=== PATIENT | male | born 1935 | race Caucasian/White ===

== ENCOUNTER 2018-03-05 14:04 | Emergency (ER) | payer MEDICARE ==
[~2018-03-05] VITALS: Ht 170.2 cm; Wt 73.2 kg
[2018-03-05 14:33] VITALS: Ht 170.2 cm; Wt 73.2 kg
[2018-03-05] MEDS ORDERED: FLOMAX0.4 MG PO (14:35)
[2018-03-05] MEDS ORDERED: VITAMIN D31000 UNIT PO (14:36)
[2018-03-05] MEDS ORDERED: CALCIUM 500 +1 EAC3 PO (14:36)
[2018-03-05] MEDS ORDERED: VITAMIN B-121000 MCG PO (14:37)
[2018-03-05 15:33] LABS: BASOPHILS 0.1 % (0-2); EOSINOPHILS 0 % (0-7); HEMATOCRIT 42.3 % (42.0-54.0); HEMOGLOBIN 14.1 g/dL (13.5-17.5); IMMATURE GRANULOCYTES 0.3 % (0-5); LYMPHOCYTES 8.7 % (15-50); MCH 31.3 pg (26.0-34.0); MCHC 33.3 g/dL (31.0-37.0); MEAN PLATELET VOLUME 10.4 fL (7.4-10.4); MONOCYTES 15.5 % (2-11); NEUTROPHILS 75.4 % (40-80); PLATELET COUNT 184 10x3/uL (130-400); RDW 13.7 % (11.5-14.5)
[2018-03-05 15:48] LABS: ALBUMIN 3.8 g/dL (3.4-5.0); ANION GAP 11.4 mmol/L (8-16); BILIRUBIN - TOTAL 1.23 mg/dL (0.2-1.3); CALCIUM 8.7 mg/dL (8.5-10.1); CREATININE - SERUM 1.2 mg/dL (0.6-1.3); POTASSIUM - SERUM 4.4 mmol/L (3.5-5.1); PROTEIN - SERUM 7.3 g/dL (6.4-8.2)
[2018-03-05 16:57] LABS: APPEARANCE CLEAR (CLEAR); COLOR DK YELLOW (YELLOW); NITRITE NEGATIVE (NEGATIVE); PROTEIN 1+ mg/dL (NEGATIVE); SPECIFIC GRAVITY 1.015 (1.005-1.020)
[2018-03-05 16:58] LABS: BACTERIA FEW /hpf (NONE SEEN); BILIRUBIN NEGATIVE (NEGATIVE); GLUCOSE NEGATIVE (NEGATIVE); KETONE SMALL mg/dL (NEGATIVE); RED CELLS - URINE OCC /hpf (0-5); UROBILINOGEN NORMAL (NORMAL); WHITE CELLS - URINE 0-5 /hpf (0-5)
[2018-03-05 18:30] VITALS: BP 121/70
[2018-04-17 11:57] VITALS: Ht 170.2 cm; Wt 73.2 kg
== END 2018-03-05 18:34 | disposition home or self-care (01) ==
LOC: D.ER 14:04
PROVIDERS: Family Medicine
DX: E86.0 Dehydration (principal); R53.1 Weakness

== ENCOUNTER 2018-04-08 11:11 | Outpatient (CLI) | payer MEDICARE ==
[~2018-04-08] VITALS: Ht 170.2 cm; Wt 72.7 kg
--- NOTE | ~2018-04-08 | HEMODYNAMI ---
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 MEDICAL RECORD: [id number] : 33 LOCATION:[facility] ADMISSION DATE: 04/08/18 Generatedon:04/08/201814:20 Patient name: SHADE PAINTER Patient #: [id number] SSN: : 1935 Date of study: 04/08/2018 Page: Of Hemodynamic Procedure Report Patient Data Patient Demographics Procedure consent was obtained First Name: SHADE Gender: Male Last Name: MADINA : 1935 Middle Initial: C Age: 82 year(s) Patient #: [id number] Race: Unknown Additional ID: [id number] Contact details [address]: [address] [place] [address] State: [place] City: [place] Zip code: [address] Past Medical History Allergies: No known allergies Admission Admission Data Admission Date: 04/08/2018 Admission Time: 11:11 Admit Source: Other Lab Results Lab Result Date: 04/08/2018 Lab Result Time: 12:10 Biochemistry Name Units Result Min Max BUN mg/dl 10 --(-*--)-- 7 18 Creatinine mg/dl 0.9 --(-*--)-- 0.6 1.3 CBC Name Units Result Min Max Hematocrit % 42.4 --(*---)-- 42 54 Hemoglobin g/dl 14.2 --(*---)-- 13.5 17.5 Procedure Procedure Types Cath Procedure Diagnostic Procedure [facility] w/Coronaries Sedation Charges Moderate Sedation up to 30 minutes PCI Procedure Coronary Stent Coronary Stent Initial Procedure Description Procedure Date Procedure Date: 04/08/2018 Procedure Start Time: 13:43 Procedure End Time: 14:18 Procedure Staff Name Function Andi Joaquin MD Performing Physician Suzanna Aviles RT Monitor Daniel Solis RT Scrub Shashi Sims RN Nurse Procedure Data Cath Procedure Fluoroscopy Diagnostic fluoroscopy Total fluoroscopy Time: 8.4 time: 8.4 min min Diagnostic fluoroscopy Total fluoroscopy dose: dose: 1115 mGy 1115 mGy Contrast Material Contrast Material Type Amount (ml) Isovue 300 131 Entry Location Entry Primary Successful Side Size Upsize Upsize Entry Closure Succes sful Closure Location (Fr) 1 (Fr) 2 (Fr) Remarks Device Remarks Femoral Right 5 Fr 6 Fr 6 Fr Exoseal artery Long Short Estimated blood loss: 10 ml Diagnostic catheters Device Type Used For End Catheter Placement MULTIPACK JL 4.0 5Fr Procedure catheter MULTIPACK 3DRC 5Fr Procedure catheter MULTIPACK Pigtail 5 Fr Procedure catheter Procedure Complications No complications Procedure Medications Medication Administration Route Dosage 0.9% NaCl I.V. 100 ml/hr Oxygen etCO2 Nasal cannula 2 l/min Heparin Flush Bag added to field 2 bags (1000units/500ml NS) Lidocaine 2% added to field 20 Versed I.V. 1 mg Fentanyl I.V. 50 mcg Heparin Bolus I.V. 5000 units Integrilin (Bolus I.V. 6.8 ml 2mg/ml) Integrilin (Bolus wasted 3.2 ml 2mg/ml) Lopressor I.V. 5 mg Plavix P.O. 600 mg Hemodynamics Rest HGB: 14.2 (g/dl) Heart Rate: 65 (bpm) Pressure Samples Time Site Value (mmHg) Purpose Heart Use Rate(bpm) 13:47 LV 173/8,16 Snapshot 60 13:48 AO 172/78(114) Pullback 63 13:48 LV 178/10,19 Pullback 63 Gradients Valve Time Site 1 Site 2 Mean SEP/DFP Peak To Heart Use (mmHg) (sec/min) Peak Rate (mmHg) (bpm) Aortic 13:48 LV AO 3 15 6 63 178/10,19 172/78(114) Calculations Valve P-P Mean Valve Index Valve Source Name Gradient Area Flow (cm2) Aortic 6 3 6 3 Snapshots Pre Cath Intra NCS Post Cath Vital Signs Time Heart Resp SPO2 etCO2 NIBP (mmHg) Rhythm Pain Sedation Rate (ipm) (%) (mmHg) Status Level (bpm) 13:42:28 68 11 98 36.8 164/90(131) NSR 0 (11) 10(A) , No pain 13:47:13 61 12 98 22.5 177/86(118) NSR 0 (11) 10(A) , No pain 13:51:51 70 15 99 10.5 163/93(147) NSR 0 (11) 9(A) , No pain 13:56:34 65 16 99 21 179/94(149) NSR 0 (11) 9(A) , No pain 14:01:18 60 12 98 30.8 179/89(119) NSR 0 (11) 10(A) , No pain 14:06:01 66 11 98 36 180/110(148) NSR 0 (11) 10(A) , No pain 14:10:33 65 19 99 33.8 144/93(115) NSR 0 (11) 10(A) , No pain 14:15:49 56 10 98 35.2 172/92(145) NSR 0 (11) 10(A) , No pain Medications Time Medication Route Dose Verified Delivered Reason Notes Effectiveness by by 13:36:30 0.9% NaCl I.V. 100 Shashi Shashi Per physician ml/hr Levi Sims RN RN 13:36:45 Oxygen etCO2 2 Shashi Shashi Per physician Nasal l/min Levi Sims cannula RN RN 13:36:56 Heparin Flush added 2 Shashi Shashi used for Bag to bags Levi Sims procedure (1000units/500ml RN RN NS) 13:37:06 Lidocaine 2% added 20ml Shashi Shashi for local to vial Levi Sims anesthetic field RN RN 13:42:55 Versed I.V. 1 mg Shashi Shashi for sedation Levi Sims RN RN 13:43:04 Fentanyl I.V. 50 Shashi Shashi for sedation mcg Levi Sims RN RN 13:54:43 Heparin Bolus I.V. 5000 Shashi Shashi for units Levi Sism anticoagulation RN RN 13:57:13 Integrilin I.V. 6.8 Shashi Shashi for (Bolus 2mg/ml) ml Levi Sims antiplatelet RN RN therapy 13:57:27 Integrilin wasted 3.2 Shashi Shashi to sharp's (Bolus 2mg/ml) ml Levi Sims RN RN 14:15:58 Lopressor I.V. 5 mg Shashi Shashi for Levi Sims hypertension RN RN 14:16:10 Plavix P.O. 600 Shashi Shashi for mg Levi Sims antiplatelet RN RN therapy Procedure Log Time Note 13:16:35 Informed consent obtained and on chart 13:16:38 Admit Source: Other 13:17:04 Diagnostic Cath status Elective 13:17:06 Shashi Sims RN sent for patient. Start room use. 13:17:06 Time tracking: Regular hours (M-F 7:00 - 5:00) 13:17:10 Plan of Care:Hemodynamics will remain stable., Cardiac rhythm will remain stable., Comfort level will be maintained., Respiratory function will remain adequate., Patient/ family verbilizes understanding of procedure., Procedure tolerated without complication., Recovers from procedure without complications.. 13:17:19 H&P Date Dictated: 04/03/2018 Within 30 days and on chart., H&P Addendum completed by physician on day of procedure. (MUST COMPLETE FOR ALL OUTPATIENTS). 13:18:30 Patient allergic to No known allergies 13:19:02 Lab Result : BUN 10 mg/dl 13:19:02 Lab Result : Hemoglobin 14.2 g/dl 13:19:02 Lab Result : Creatinine 0.9 mg/dl 13:19:02 Lab Result : Hematocrit 42.4 % 13:19:05 Lab results completed and on chart. 13:21:37 Patient received from Pre/Post Procedure Room to CCL 1 Alert and oriented. Tansferred to table in Supine position. 13:21:38 Warm blankets applied, and winston hugger turned on for patient comfort. 13:21:39 Correct patient and procedure confirmed by team. 13:21:40 ECG and BP/O2 sat monitors applied to patient. 13:21:41 Pre-procedure instructions explained to patient. 13:21:41 Pre-op teaching completed and patient verbalized understanding. 13:21:42 Family in waiting room. 13:21:45 Patient NPO since Breakfast. 13:35:34 Is the patient allergic to Iodine/contrast media? No. 13:35:37 Is patient on blood thinner?Yes 13:35:42 ACC The patient was administered the following blood thiners within the last 24 hours: Xarelto 13:36:09 Patient diabetic? No. 13:36:10 ----Pre-sedation anethsthesia assessment.---- 13:36:13 Snore? No 13:36:14 Previous problem with sedation/anesthesia? No ? 13:36:16 Sleep apnea? No 13:36:18 Deviated septum? No 13:36:19 Opens mouth fully? Yes 13:36:21 Sticks out tongue? Yes 13:36:23 Airway obstruction? No ? 13:36:25 Dentures? No ? 13:36:28 Pre procedure: right dorsailis pedis pulse 1+ Palpable, but thready & weak; easily obliterated 13:36:30 0.9% NaCl 100 ml/hr I.V. was administered by Shashi Sims RN; Per physician; 13:36:31 Modified Rehan's test Ulnar > 7 seconds. 13:36:33 Patient pain scale 0/10 ?. 13:36:39 IV patent on arrival in left antecubital with 0.9% NaCl at 10ml/hr. 13:36:45 Oxygen 2 l/min etCO2 Nasal cannula was administered by Shashi Sims RN; Per physician; 13:36:45 Right groin area was prepped with chlora-prep and draped in sterile fashion 13:36:46 Alarms reviewed by R. N. 13:36:46 Sharps counted by scrub and verified by R.N. 13:36:47 Physician arrived 13:36:56 Heparin Flush Bag (1000units/500ml NS) 2 bags added to field was administered by Shashi Sims RN; used for procedure; 13:37:06 Lidocaine 2% 20ml vial added to field was administered by Shashi Sims RN; for local anesthetic; 13:37:11 Vital chart was started 13:37:55 --------ALL STOP TIME OUT------ 13:37:55 Final Timeout: patient, procedure, and site verified with staff and physician. All members of the team are in agreement. 13:37:57 Right groin site verified by team. 13:38:00 Physical assessment completed. ASA score P 2 - A patient with mild systemic disease as per Andi Joaquin MD. 13:38:02 Sedation plan: IV Moderate Sedation Medication:Versed, Fentanyl 13:38:06 Use device set Femoral Dx 13:38:07 ACIST Syringe (45991) opened to sterile field. 13:38:08 Bag Decanter () opened to sterile field. 13:38:09 Medline Cath Pack ([id number]) opened to sterile field. 13:38:10 ACIST Hand Control (00450) opened to sterile field. 13:38:11 ACIST Manifold (71133) opened to sterile field. 13:38:12 Tegaderm 4 x 4 (1626W) opened to sterile field. 13:38:13 SHEATH Prelude 5Fr 0.035 (FDP-9D-71-035) opened to sterile field. 13:38:14 DIAGNOSTIC WIRE .035 260cm J wire (886493) opened to sterile field. 13:38:15 DIAGNOSTIC Multipack 5Fr catheter set (CK7639) opened to sterile field. 13:39:16 Baseline sample Acquired. 13:40:40 Rhythm: sinus rhythm 13:40:42 Zero performed for pressure channel P1 13:42:29 Zero performed for pressure channel P1 13:42:55 Versed 1 mg I.V. was administered by Shashi Sims RN; for sedation; 13:43:04 Fentanyl 50 mcg I.V. was administered by Shashi Sims RN; for sedation; 13:43:21 Procedure started. 13:43:21 Full Disclosure recording started 13:43:23 Local anesthetic to right femoral artery with Lidocaine 2% by Andi Joaquin MD.INITIAL ACCESS ONLY 13:43:31 A 5 Fr sheath was inserted into the Right Femoral artery 13:43:36 A MULTIPACK JL 4.0 5Fr catheter was advanced over the wire and used for Procedure. 13:44:42 LCA angiography performed. 13:45:09 Catheter exchanged over wire. 13:45:14 A MULTIPACK 3DRC 5Fr catheter was advanced over the wire and used for Procedure. 13:45:58 RCA angiography performed. 13:46:29 Catheter exchanged over wire. 13:46:42 A MULTIPACK Pigtail 5 Fr catheter was advanced over the wire and used for Procedure. 13:47:42 LV gram done using NEWMAN 13:47:44 Injector settings: Ml/sec: 10, Volume: 20, 13:47:49 LV hemodynamics recorded. 13:47:53 EF : 45 % 13:51:07 Catheter removed. 13:51:14 SHEATH 6FR Destination (RSR01) opened to sterile field. 13:51:38 WHISPER 300cm guide wire ([id number]) opened to sterile field. 13:51:38 INFLATOR Merit BasixCompak (SV6015) opened to sterile field. 13:51:44 GUIDE 6FR EBU 4.0 guide catheter ([id number]) opened to sterile field. 13:51:58 Sheath upsized to a 6 Fr Long. 13:52:04 6 Fr ebu 4 guide catheter was inserted over the wire 13:54:43 Heparin Bolus 5000 units I.V. was administered by Shashi Sims RN; for anticoagulation; 13:55:54 whisper wire advanced. 13:56:22 Wire advanced across lesion. 13:57:13 Integrilin (Bolus 2mg/ml) 6.8 ml I.V. was administered by Shashi Sims RN; for antiplatelet therapy; 13:57:27 Integrilin (Bolus 2mg/ml) 3.2 ml wasted was administered by Shashi Sims RN; to sharp's; 13:58:15 CHOICE PT Extra Support J 300cm guide wire ([id number]) opened to sterile field. 13:59:15 choice pt es wire advanced. 13:59:17 Wire advanced across lesion. 13:59:23 Inflate balloon Inflation number: 1 A EMERGE OTW 3.0 x 15 balloon ([id number]) was prepped and advanced across the Mid CX, then inflated to 10 SCOTT for 0:10 (min:sec). 13:59:53 Inflation number: 2 The EMERGE OTW 3.0 x 15 balloon ([id number]) was reinflated across the Mid CX, to 10 SCOTT for 0:30 (min:sec). 14:00:19 Inflation number: 3 The EMERGE OTW 3.0 x 15 balloon ([id number]) was reinflated across the Mid CX, to 10 SCOTT for 0:30 (min:sec). 14:00:44 Inflation number: 4 The EMERGE OTW 3.0 x 15 balloon ([id number]) was reinflated across the Mid CX, to 30 SCOTT for 0:10 (min:sec). 14:01:49 Inflation number: 5 The EMERGE OTW 3.0 x 15 balloon ([id number]) was reinflated across the Mid CX, to 10 SCOTT for 0:30 (min:sec). 14:02:19 Inflation number: 6 The EMERGE OTW 3.0 x 15 balloon ([id number]) was reinflated across the Mid CX, to 12 SCOTT for 0:30 (min:sec). 14:02:33 Balloon removed over the wire. 14:06:46 Place stent Inflation Number: 7 A GEMINI OTW 3.5 x 18 stent ([id number]) was prepped and advanced across the Mid CX. The stent was deployed at 14 SCOTT for 0:45 (min:sec). 14:06:47 Stent catheter was removed intact over wire. 14:10:24 Place stent Inflation Number: 1 A GEMINI OTW 3.5 x 18 stent ([id number]) was prepped and advanced across the Prox CX. The stent was deployed at 14 SCOTT for 0:45 (min:sec). 14:12:04 SHEATH Prelude 6Fr 0.035 (MUI-0Z-58-035) opened to sterile field. 14:12:10 EXOSEAL 6Fr (EX600) opened to sterile field. 14:12:28 Stent catheter was removed intact over wire. 14:12:29 Wire removed. 14:12:29 Guide catheter removed. 14:13:13 Sheath upsized to a 6 Fr Short. 14:13:31 Procedure ended.(Physican Out) 14:13:52 Sheath removed intact; hemostasis achieved with Exoseal to the Right Femoral artery. 14:13:58 Fluoroscopy time 08.40 minutes. 14:14:04 Fluoroscopy dose: 1115 mGy 14:14:04 Flurop Dose total: 1115 14:14:10 Contrast amount:Isovue 300 131ml. 14:14:12 Sharps counted by scrub and verified by R.N. 14:14:13 Insertion/operative site no bleeding no hematoma. 14:14:15 Post-op/insertion site Right Femoral artery dressed using a 4 x 4 and Tegaderm. 14:14:20 Post right femoral artery:stable, soft, clean and dry 14:15:58 Lopressor 5 mg I.V. was administered by Shashi Sims RN; for hypertension; 14:16:10 Plavix 600 mg P.O. was administered by Shashi Sims RN; for antiplatelet therapy; 14:16:11 Post Procedure Pulses reassessed and unchanged 14:16:13 Post-procedure physical assessment completed. ASA score P 2 - A patient with mild systemic disease as per Andi Joaquin MD. 14:16:16 Post procedure rhythm: unchanged. 14:16:44 Estimated blood loss: 10 ml 14:16:46 Post procedure instruction explained to patient.Patient verbalizes understanding. 14:16:47 Patient needs reinforcement of post procedure teaching. 14:16:52 Procedure type changed to Cath procedure, Diagnostic procedure, LHC, LHC w/Coronaries, Sedation Charges, Moderate Sedation up to 30 minutes, PCI procedure, Coronary Stent, Coronary Stent Initial 14:18:01 Procedure and supply charges have been captured, reviewed, submitted and are correct. 14:18:03 Procedure Complication : No complications 14:18:06 Vital chart was stopped 14:18:06 See physician's report for complete and final results. 14:18:09 Report given to Pre/Post Procedure Room. 14:18:11 Patient transfered to Pre/Post Procedure Room with Stretcher. 14:18:14 Procedure ended. 14:18:14 Full Disclosure recording stopped 14:19:59 End room use (Document Last) Intervention Summary Intervention Notes Time ActionType Lesion and Equipment Action# Pressure Duration Attributes Used 13:59:23 Inflate Mid CX EMERGE OTW 1 10 00:10 balloon 3.0 x 15 balloon ([id number]) 13:59:53 Reinflate Mid CX EMERGE OTW 2 10 00:30 balloon 3.0 x 15 balloon ([id number]) 14:00:19 Reinflate Mid CX EMERGE OTW 3 10 00:30 balloon 3.0 x 15 balloon ([id number]) 14:00:44 Reinflate Mid CX EMERGE OTW 4 30 00:10 balloon 3.0 x 15 balloon ([id number]) 14:01:49 Reinflate Mid CX EMERGE OTW 5 10 00:30 balloon 3.0 x 15 balloon ([id number]) 14:02:19 Reinflate Mid CX EMERGE OTW 6 12 00:30 balloon 3.0 x 15 balloon ([id number]) 14:06:46 Place stent Mid CX GEMINI OTW 3.5 7 14 00:45 x 18 stent ([id number]) 14:10:24 Place stent Prox CX GEMINI OTW 3.5 1 14 00:45 x 18 stent ([id number]) Device Usage Item Name Manufacture Quantity Catalog Number Hospital Part Current Minimal Lot# / Charge Number Stock Stock Serial# Code ACIST Syringe Acist 1 40782 [id number] 785030 [id number] 20 (07117) [employer] Bag Decanter Microtek 1 2001S 117252 29664 996768 5 (2001S) Medical Inc. Medline Cath Cardinal 1 [id number] 884375 17121 406289 5 Pack Health ([id number]) ACIST Hand Acist 1 90407 596574 834582 890254 5 Control (92997) [employer] Inc ACIST Manifold Acist 1 29195 179068 944054 789980 5 (16884) Medical Systems Inc Tegaderm 4 x 4 3M 1 1626W 154283 726218 207755 5 (1626W) SHEATH Prelude Merit 1 [id number]-4P-86-035 371944 195534 515500 5 5Fr 0.035 Medical (NEC-8G-12-035) DIAGNOSTIC WIRE [facility] [place] 1 454649 896799 834689 753036 30 .035 260cm J wire (690151) DIAGNOSTIC Cardinal 1 JZ2204 222488 76236 302577 30 Multipack 5Fr Health catheter set (PW9784) MULTIPACK JL Cardinal 1 934685 5 4.0 5Fr Health catheter MULTIPACK 3DRC Cardinal 1 417109 5 5Fr catheter Health MULTIPACK Cardinal 1 981708 5 Pigtail 5 Fr Health catheter SHEATH 6FR Terumo 1 RSR01 967580 03409 274010 5 Destination (RSR01) WHISPER 300cm Sousa 1 [id number] 920524 472918 745783 5 guide wire Vascular ([id number]) INFLATOR Merit Merit 1 JD6442 656956 601556 679766 15 [facility] (XE6348) GUIDE 6FR EBU Medtronic 1 [id number] 462991 01513 318711 1 4.0 guide catheter ([id number]) CHOICE PT Extra [place] 1 [id number] 898205 114473 666043 5 Support J 300cm Scientific guide wire ([id number]) EMERGE OTW 3.0 [place] 1 [id number] 014248 257283 469572 5 [id number] x 15 balloon Scientific ([id number]) GEMINI OTW 3.5 x Medtronic 2 [id number] 144989 7738561 996796 5 [id number] 18 stent [id number] ([id number]) SHEATH Prelude Merit 1 DAM-1E-24-35 691678 4057873 067385 5 6Fr 0.035 Medical (XKQ-9A-90-035) EXOSEAL 6Fr Cardinal 1 EX600 091441 203158 852687 10 (EX600) Health Signature Audit [place] Stage Time Signature Unsigned Intra-Procedure 04/08/2018 Daniel Solis 2:20:40 PM RT(R) Signatures Monitor : Suzanna Aviles RT Signature : Date : Time : [id number] [place] [address]
--- NOTE | ~2018-04-08 | OP ---
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 CATHETERS: 5-Italian sheath, 5/4 left and right Mika, 5/4 pig. The procedure was well tolerated. The patient was returned to cowan, sheath removed. We proceeded to do PTCA stenting of circumflex. FINDINGS: Left ventriculography in 30-degree NEWMAN view shows mild global hypokinesis. Overall, LV function mildly reduced at 40% to 45%. CORONARY ANATOMY: LEFT MAIN: Left main is free of disease. LAD: Has a proximal stenosis at the takeoff of the first septal about 80%. Distally, there is a second stenosis of 80% making this a poor target distally. CIRCUMFLEX: Left dominant system. There is 2 proximal stenoses of 80%. The terminal circumflex OM has diffuse severe disease of approximately 90%, again making poor target distally. RIGHT CORONARY ARTERY: Rudimentary. However, does have significant stenosis. IMPRESSION: Multivessel coronary artery disease, poor distal targets precluding bypass grafting. PLAN: Intervention in staged fashion. DESCRIPTION OF PROCEDURE: A 5-Italian sheath was exchanged for a long 6-Italian sheath. XB EBU 4.0 guiding catheter provided good guide catheter support followed by 300 cm Whisper wire, which was placed across the tightly occluded circumflex down this portion of the vessel. Next, predeployment ballooning was a 3.0 x 50 mm [place] balloon, which was placed across the diffusely diseased distal circumflex terminal OM up and down this vessel up to 10 atmospheres for 30 seconds. Next, stents in the proximal portion two 80% stenoses were addressed with a 3.5 x 15 mm Resolute drug-eluting stent distally and a proximal 3.5 x 18 mm [place] drug-eluting stent, each inflation up to 14 atmospheres for 45 seconds. Final angiography shows excellent resolution of 80% stenosis in both stented areas to diffuse 90% stenosis. AKIRA flow was 3 throughout the procedure. Integrilin was used during the case. Sheath was closed with ExoSeal device. Plavix was loaded in the lab. TRANSINT:[id number] Voice Confirmation ID: [id number] DOCUMENT ID: [id number] SERENA THOMAS MD at 1449 CC: [id number] DICTATION DATE: 04/08/18 1426 AMMONIUM HYDROXIDE OPERATOR: 04/08/18 1444 [address] [place] [id number] [place] [id number]
[~2018-04-08 11:11] MED LIST: CALCIUM 500 +1 EAC3 PO; FLOMAX0.4 MG PO; VITAMIN B-121000 MCG PO; VITAMIN D31000 UNIT PO
[2018-04-08 12:16] LABS: BASOPHILS 0.3 % (0-2); HEMATOCRIT 42.4 % (42.0-54.0); HEMOGLOBIN 14.2 g/dL (13.5-17.5); IMMATURE GRANULOCYTES 0.3 % (0-5); LYMPHOCYTES 17.2 % (15-50); MCH 31.1 pg (26.0-34.0); MCHC 33.5 g/dL (31.0-37.0); MEAN PLATELET VOLUME 10.4 fL (7.4-10.4); MONOCYTES 9.1 % (2-11); NEUTROPHILS 71.1 % (40-80); PLATELET COUNT 197 10x3/uL (130-400); RBC 4.56 10x6/uL (4.20-6.10); WBC 7.1 10x3/uL (4.8-10.8)
[2018-04-08] MEDS ORDERED: XARELTO20 MG PO (12:24)
[2018-04-08 12:25] VITALS: BP 177/71; Ht 170.2 cm; Wt 72.7 kg
[2018-04-08] MEDS ORDERED: BETAPACE 80 MG80 MG PO (12:25)
[2018-04-08 12:39] LABS: CALC OSMOLALITY 281 mosm/kg (275-300); CALCIUM 8.7 mg/dL (8.5-10.1); CARBON DIOXIDE 31.8 mmol/L (21.0-32.0); CHLORIDE - SERUM 106 mmol/L (98-107); CREATININE - SERUM 0.9 mg/dL (0.6-1.3); POTASSIUM - SERUM 3.9 mmol/L (3.5-5.1); SODIUM 142 mmol/L (136-145); UREA NITROGEN 10 mg/dL (7-18); eGFR NON AFRICAN AMERICAN 85 mL/min (90-120)
[2018-04-08 12:40] LABS: GLUCOSE 93 mg/dL (74-106)
[2018-04-08 12:51] LABS: INR 1.07 (0.85-1.17); PROTIME 13.5 SECONDS (11.6-15.0)
[2018-04-08] MEDS ORDERED: PLAVIX75 MG PO (14:36)
== END 2018-04-08 18:40 | disposition home or self-care (01) ==
LOC: D.CATH 11:11
PROVIDERS: Internal Medicine Interventional Cardiology
DX: I25.119 Atherosclerotic heart disease of native coronary artery with unspecified angina pectoris (principal); Z01.812 Encounter for preprocedural laboratory examination
CPT/HCPCS: 93458; C9600

== ENCOUNTER 2018-04-17 11:40 | Outpatient (CLI) | payer MEDICARE ==
[~2018-04-17] VITALS: Ht 170.2 cm; Wt 72.7 kg
--- NOTE | ~2018-04-17 | HEMODYNAMI ---
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 MEDICAL RECORD: [id number] : 33 LOCATION:[facility] ADMISSION DATE: 04/17/18 Generatedon:04/17/201814:26 Patient name: SHADE PAINTER Patient #: [id number] SSN: : 1935 Date of study: 04/17/2018 Page: Of Hemodynamic Procedure Report Patient Data Patient Demographics Procedure consent was obtained First Name: SHADE Gender: Male Last Name: MADINA : 1935 [facility] Initial: C Age: 82 year(s) Patient #: [id number] Race: Unknown Additional ID: [id number] Contact details Address: [address] [place] [address] State: [place] City: [place] Zip code: [address] Past Medical History Allergies: No known allergies Admission Admission Data Admission Date: 04/17/2018 Admission Time: 11:40 Procedure Procedure Types Cath Procedure PCI Procedure Coronary Stent Coronary Stent Initial Procedure Description Procedure Date Procedure Date: 04/17/2018 Procedure Start Time: 13:55 Procedure End Time: 14:25 Procedure Staff Name Function Saroj Ponce RT Monitor Suzanna Aviles RT Scrub Rico Godinez RN Nurse Andi Joaquin MD Performing Physician Procedure Data Cath Procedure Fluoroscopy Diagnostic fluoroscopy Total fluoroscopy Time: 7.4 time: 7.4 min min Diagnostic fluoroscopy Total fluoroscopy dose: 784 dose: 784 mGy mGy Contrast Material Contrast Material Type Amount (ml) Isovue 300 103 Entry Location Entry Primary Successful Side Size Upsize Upsize Entry Closure Lynch ccessful Closure Location (Fr) 1 (Fr) 2 (Fr) Remarks Device Remarks Femoral Right 6 Fr 6 Fr 6 Fr Mechanical EXOSEAL artery Short Long Short Compression WOULDNT GO THROUGH THE SHEATH Procedure Complications No complications Procedure Medications Medication Administration Route Dosage Lidocaine 2% added to field 20 Heparin Flush Bag added to field 2 bags (1000units/500ml NS) 0.9% NaCl I.V. 100 ml/hr Versed I.V. 1 mg Fentanyl I.V. 50 mcg Heparin Bolus I.V. 4000 units Versed I.V. 1 mg Fentanyl I.V. 50 mcg Hemodynamics Rest Heart Rate: 34 (bpm) Snapshots Pre Cath Intra NCS Post Cath Vital Signs Time Heart Resp SPO2 etCO2 NIBP (mmHg) Rhythm Pain Sedation Rate (ipm) (%) (mmHg) Status Level (bpm) 13:44:18 47 14 96 0 178/99(159) NSR 0 (11) 10(A) , No pain 13:48:42 51 22 98 36 188/105(152) NSR 0 (11) 10(A) , No pain 13:53:06 45 2 98 0 182/95(150) NSR 0 (11) 10(A) , No pain 13:57:37 53 6 96 0 169/76(124) NSR 0 (11) 9(A) , No pain 14:02:03 53 22 95 0 142/76(135) NSR 0 (11) 9(A) , No pain 14:06:25 67 27 96 0 144/59(121) NSR 0 (11) 9(A) , No pain 14:11:26 52 30 97 0 138/71(128) NSR 0 (11) 9(A) , No pain 14:15:40 68 17 98 0 147/76(122) NSR 0 (11) 10(A) , No pain 14:20:39 55 14 98 35.2 Measuring NSR 0 (11) 10(A) , No pain 14:21:10 56 10 98 33 170/79(141) NSR 0 (11) 10(A) , No pain Medications Time Medication Route Dose Verified Delivered Reason Notes Effectiveness by by 13:51:14 Lidocaine 2% added 20ml Demetrius Romo for local to vial Kayleigh Victor MD anesthetic field 13:51:23 Heparin Flush added 2 Andi Escamilla used for Bag to bags EmaniCecilio Joaquin procedure (1000units/500ml field MD KENYON NS) 13:51:32 0.9% NaCl I.V. 100 Andi Gómez Per physician ml/hr St Cecilio Godinez RN, MD 13:51:52 Versed I.V. 1 mg Andi Gómez for sedation St Cecilio Godinez RN, MD 13:51:58 Fentanyl I.V. 50 Andi Gómez for sedation mcg St Cecilio Godinez RN, MD 13:57:52 Versed I.V. 1 mg Andi Gómez for sedation St Cecilio Godinez RN, MD 13:57:56 Fentanyl I.V. 50 Andi Gómez for sedation mcg St Cecilio Godinez RN, MD 14:00:43 Heparin Bolus I.V. 4000 Andi Gómez for verifi ed units St Cecilio Godinez RN anticoagulation with dr MD howe Procedure Log Time Note 13:29:44 Diagnostic Cath status Elective 13:29:47 Rico Godinez RN sent for patient. Start room use. 13:30:20 Time tracking: Regular hours (M-F 7:00 - 5:00) 13:30:25 Plan of Care:Hemodynamics will remain stable., Cardiac rhythm will remain stable., Comfort level will be maintained., Respiratory function will remain adequate., Patient/ family verbilizes understanding of procedure., Procedure tolerated without complication., Recovers from procedure without complications.. 13:30:33 Patient received from Pre/Post Procedure Room to [facility] 2 Alert and oriented. Tansferred to table in Supine position. 13:30:34 Warm blankets applied, and winston hugger turned on for patient comfort. 13:30:34 Correct patient and procedure confirmed by team. 13:30:35 Signed procedure consent form obtained from patient. 13:30:36 ECG and BP/O2 sat monitors applied to patient. 13:43:07 Vital chart was started 13:43:08 Baseline sample Acquired. 13:43:11 Rhythm: sinus rhythm 13:43:12 Full Disclosure recording started 13:44:15 H&P Date Dictated: 04/03/2018 Within 30 days and on chart.. 13:44:16 Pre-procedure instructions explained to patient. 13:44:17 Pre-op teaching completed and patient verbalized understanding. 13:44:19 Family in waiting room. 13:44:20 Patient NPO since Midnight. 13:44:27 Patient allergic to No known allergies 13:44:29 Is the patient allergic to Iodine/contrast media? No. 13:44:34 Is patient on blood thinner?Yes 13:44:37 ACC The patient was administered the following blood thiners within the last 24 hours: ACCPlavix 13:44:39 Patient diabetic? No. 13:44:40 ----Pre-sedation anethsthesia assessment.---- 13:44:42 Previous problem with sedation/anesthesia? No ? 13:44:43 Snore? No 13:44:46 Sleep apnea? No 13:44:49 Deviated septum? No 13:44:51 Opens mouth fully? Yes 13:44:52 Sticks out tongue? Yes 13:44:54 Airway obstruction? No ? 13:45:01 Dentures? Yes in tight 13:45:22 Pre procedure: right dorsailis pedis pulse 1+ Palpable, but thready & weak; easily obliterated 13:45:28 Patient pain scale 0/10 ?. 13:45:33 IV patent on arrival in left antecubital with 0.9% NaCl at 10ml/hr. 13:50:35 Right groin area was prepped with chlora-prep and draped in sterile fashion 13:50:36 Alarms reviewed by R. N. 13:50:37 Sharps counted by scrub and verified by R.N. 13:50:37 --------ALL STOP TIME OUT------ 13:50:38 Final Timeout: patient, procedure, and site verified with staff and physician. All members of the team are in agreement. 13:50:40 Right groin site verified by team. 13:51:00 Physical assessment completed. ASA score P 2 - A patient with mild systemic disease as per Andi Joaquin MD. 13:51:04 Sedation plan: IV Moderate Sedation Medication:Versed, Fentanyl 13:51:11 Use device set SPARKS PCI 13:51:13 INFLATOR Merit BasixCompak ([id number]) opened to sterile field. 13:51:14 Lidocaine 2% 20ml vial added to field was administered by Demetrius Victor MD; for local anesthetic; 13:51:22 EXOSEAL 6Fr (EX600) opened to sterile field. 13:51:23 Heparin Flush Bag (1000units/500ml NS) 2 bags added to field was administered by Andi Joaquin MD; used for procedure; 13:51:25 SHEATH Prelude 6Fr 0.035 (UET-7D-11-035) opened to sterile field. 13:51:32 0.9% NaCl 100 ml/hr I.V. was administered by Rico Godinez RN; Per physician; 13:51:52 Versed 1 mg I.V. was administered by Rico Godinez RN; for sedation; 13:51:58 Fentanyl 50 mcg I.V. was administered by Rico Godinez RN; for sedation; 13:52:30 Procedure started. 13:55:09 Local anesthetic to right femoral artery with Lidocaine 2% by Andi Joaquin MD.INITIAL ACCESS ONLY 13:55:21 A 6 Fr Short sheath was inserted into the Right Femoral artery 13:55:50 Sheath upsized to a 6 Fr Long. 13:55:59 SHEATH 6FR Destination (RSR01) opened to sterile field. 13:56:03 GUIDE 6FR XBLAD 3.5 catheter ([id number]) opened to sterile field. 13:56:20 6 Fr XBLAD 3.5 guide catheter was inserted over the wire 13:57:52 Versed 1 mg I.V. was administered by Rico Godinez RN; for sedation; 13:57:56 Fentanyl 50 mcg I.V. was administered by Rico Godinez RN; for sedation; 13:58:51 ACIST Syringe (75031) opened to sterile field. 13:58:52 Bag Decanter (2002S) opened to sterile field. 13:58:53 Medline Cath Pack ([id number]) opened to sterile field. 13:58:54 DIAGNOSTIC WIRE .035 260cm J wire (675261) opened to sterile field. 13:58:56 ACIST Hand Control (78815) opened to sterile field. 13:58:57 ACIST Manifold (14168) opened to sterile field. 13:58:59 Tegaderm 4 x 4 (1626W) opened to sterile field. 13:59:13 Zero performed for pressure channel P1 13:59:58 Guide catheter removed. 14:00:12 GUIDE 6FR EBU 4.0 guide catheter ([id number]) opened to sterile field. 14:00:23 6 Fr EBU 4 guide catheter was inserted over the wire 14:00:43 Heparin Bolus 4000 units I.V. was administered by Rico Godinez RN; for anticoagulation; verified with dr howe 14:01:07 WHISPER wire advanced. 14:01:48 WHISPER 300cm guide wire ([id number]) opened to sterile field. 14:08:12 Place stent Inflation Number: 1 A GEMINI OTW 2.5 x 18 stent ([id number]) was prepped and advanced across the Mid LAD. The stent was deployed at 14 SCOTT for 0:43 (min:sec). 14:08:20 Stent catheter was removed intact over wire. 14:10:49 Place stent Inflation Number: 2 A GEMINI OTW 3.0 x 18 stent ([id number]) was prepped and advanced across the Mid LAD. The stent was deployed at 14 SCOTT for 0:11 (min:sec). 14:12:37 Inflation number: 3 The stent balloon was then re-inflated across the Mid LAD to 12 SCOTT for 0:20 (min:sec). 14:14:11 Stent catheter was removed intact over wire. 14:15:49 Place stent Inflation Number: 4 A GEMINI OTW 2.5 x 12 stent ([id number]) was prepped and advanced across the Mid LAD. The stent was deployed at 14 SCOTT for 0:30 (min:sec). 14:16:06 Stent catheter was removed intact over wire. 14:16:07 Wire removed. 14:16:10 Guide catheter removed. 14:17:31 Sheath upsized to a 6 Fr Short. 14:17:31 Sheath removed intact; hemostasis achieved with Mechanical Compression to the Right Femoral artery. 14:17:32 Procedure ended.(Physican Out) 14:17:57 Procedure type changed to Cath procedure, PCI procedure, Coronary Stent, Coronary Stent Initial 14:18:05 Fluoroscopy time 07.40 minutes. 14:18:15 Flurop Dose total: 784 14:18:15 Fluoroscopy dose: 784 mGy 14:23:52 Contrast amount:Isovue 300 103ml. 14:24:24 Sharps counted by scrub and verified by R.N. 14:24:25 Insertion/operative site no bleeding no hematoma. 14:24:28 Post-op/insertion site Right Femoral artery dressed using a 4 x 4 and Tegaderm. 14:24:31 Post right femoral artery:stable 14:24:35 Post procedure rhythm: sinus rhythm 14:24:38 Post procedure instruction explained to patient.Patient verbalizes understanding. 14:24:39 Procedure and supply charges have been captured, reviewed, submitted and are correct. 14:24:59 EXOSEAL 6Fr (EX600) opened to sterile field. 14:25:00 FEMSTOP Gold ([id number]) opened to sterile field. 14:25:29 Procedure Complication : No complications 14:25:33 Vital chart was stopped 14:25:33 See physician's report for complete and final results. 14:25:35 Report given to Pre/Post Procedure Room. 14:25:38 Patient transfered to Pre/Post Procedure Room with Stretcher. 14:25:40 Procedure ended. 14:25:40 Full Disclosure recording stopped 14:25:48 End room use (Document Last) Intervention Summary Intervention Notes Time ActionType Lesion and Equipment Action# Pressure Duration Attributes Used 14:08:12 Place stent Mid LAD GEMINI OTW 2.5 1 14 00:43 x 18 stent ([id number]) 14:10:49 Place stent Mid LAD GEMINI OTW 3.0 2 14 00:11 x 18 stent ([id number]) 14:12:37 Reinflate Mid LAD GEMINI OTW 3.0 3 12 00:20 stent x 18 stent balloon ([id number]) 14:15:49 Place stent Mid LAD GEMINI OTW 2.5 4 14 00:30 x 12 stent ([id number]) Device Usage Item Name Manufacture Quantity Catalog Hospital Part Current M inimal Lot# / Number Charge Number Stock Stock Serial# Code INFLATOR Merit Merit 1 [id number] 000547 394822 297734 1 [facility] (ID2735) EXOSEAL 6Fr Cardinal 2 EX600 605007 464324 479060 1 0 (EX600) Health SHEATH Prelude Merit 1 ZIB-[id number] 059900 5534710 430801 5 6Fr 0.035 Medical (KRX-8P-19-035) SHEATH 6FR Terumo 1 RSR01 916132 21011 413978 5 Destination (RSR01) GUIDE 6FR XBLAD Cardinal 1 [id number] 985290 709491 507166 1 0 3.5 catheter Health (90877608) ACIST Syringe Acist 1 75436 629033 916755 085383 2 0 (99375) Medical Systems Inc Bag Decanter Microtek 1 550818 64695 616881 5 (2001S) Medical Inc. Medline Cath Cardinal 1 [id number] 315733 38105 762731 5 Pack Health ([id number]) DIAGNOSTIC WIRE St Kalia 1 042100 953127 343924 522126 3 0 .035 260cm J wire (652103) ACIST Hand Acist 1 21843 292856 818895 305039 5 Control (72910) Medical Systems Inc ACIST Manifold Acist 1 61188 697568 508318 446805 5 (27114) Medical Systems Inc Tegaderm 4 x 4 3M 1 1626W 740510 943218 636252 5 (1626W) GUIDE 6FR EBU Medtronic 1 [id number] 840488 35523 557762 1 4.0 guide catheter (TH1ZMY56) WHISPER 300cm Sousa 1 [id number] 696994 464709 539972 5 guide wire Vascular ([id number]) GEMINI OTW 2.5 x Medtronic 1 [id number] 858905 76141 427578 5 [id number] 18 stent ([id number]) GEMINI OTW 3.0 x Medtronic 1 [id number] 137662 1733830 927237 5 [id number] 18 stent ([id number]) GEMINI OTW 2.5 x Medtronic 1 [id number] 337438 40148 474760 5 [id number] 12 stent ([id number]) FEMSTOP Gold St Kalia 1 [id number] 550869 293024 235888 5 (S55493) Signature Audit [place] Stage Time Signature Unsigned Intra-Procedure 04/17/2018 Saroj CHOWDHURY(Yuval) 2:26:21 PM Signatures Monitor : Saroj Ponce RT Signature : Date : Time : [facility] [address] [place] [address]
--- NOTE | ~2018-04-17 | OP ---
PATIENT NAME: SHADE PAINTER MEDICAL RECORD: [id number] :33 LOCATION:D.CAT ADMISSION DATE: SURGEON: SERENA THOMAS MD DATE OF OPERATION: 04/17/2018 PTCA AND STENT REPORT For catheterization report, please see cath report dictated previously. DESCRIPTION OF PROCEDURE: After a 6-Danish sheath was placed in the right femoral artery, a JL-4 guiding catheter provided good guide catheter support followed by 300-cm Whisper wire placed across the tightly occluded LAD down to distal portion of this vessel. Next, stents deployed were 3.0 x 15-mm Integrity nondrug-eluting stent, more proximally a 3.0 x 18-mm nondrug-eluting stent, and finally another 3.0 x 12-mm nondrug-eluting Integrity stent up to 14 atmospheres. Final angiography shows excellent resolution of diffuse stenoses of 80% to 90% in LAD. No significant residual. AKIRA flow was 3 throughout the procedure and heparin was used during the case. Sheath was closed with ExoSeal device. TRANSINT:[id number] Voice Confirmation ID: [id number] DOCUMENT ID: [id number] SERENA THOMAS MD at 0802 CC: [id number] DICTATION DATE: 05/26/18 1336 PROTOTYPE CARPENTER: 05/26/18 1632 DEP CLI 04/17/[address] [address]
[~2018-04-17 11:40] MED LIST changes: +BETAPACE 80 MG80 MG PO; +PLAVIX75 MG PO; +XARELTO20 MG PO
[2018-04-17 11:57] VITALS: BP 109/82; Ht 170.2 cm; Wt 72.7 kg
[2018-04-17 12:04] LABS: BASOPHILS 0.4 % (0-2); EOSINOPHILS 2.5 % (0-7); HEMATOCRIT 40.9 % (42.0-54.0); HEMOGLOBIN 13.8 g/dL (13.5-17.5); IMMATURE GRANULOCYTES 0.3 % (0-5); LYMPHOCYTES 19.1 % (15-50); MCH 31.2 pg (26.0-34.0); MCHC 33.7 g/dL (31.0-37.0); MCV 92.3 fL (80.0-100.0); MEAN PLATELET VOLUME 10.3 fL (7.4-10.4); MONOCYTES 8.6 % (2-11); NEUTROPHILS 69.1 % (40-80); PLATELET COUNT 215 10x3/uL (130-400); RBC 4.43 10x6/uL (4.20-6.10); RDW 13.2 % (11.5-14.5); WBC 7.2 10x3/uL (4.8-10.8)
[2018-04-17 12:22] LABS: CALC OSMOLALITY 281 mosm/kg (275-300); CALCIUM 8.5 mg/dL (8.5-10.1); CARBON DIOXIDE 30.5 mmol/L (21.0-32.0); CHLORIDE - SERUM 106 mmol/L (98-107); CREATININE - SERUM 0.8 mg/dL (0.6-1.3); GLUCOSE 101 mg/dL (74-106); POTASSIUM - SERUM 4.3 mmol/L (3.5-5.1); SODIUM 141 mmol/L (136-145); UREA NITROGEN 14 mg/dL (7-18); eGFR NON AFRICAN AMERICAN > 90 mL/min (90-120)
== END 2018-04-17 18:40 | disposition home or self-care (01) ==
LOC: D.CATH 11:40
PROVIDERS: Internal Medicine Interventional Cardiology
DX: I25.119 Atherosclerotic heart disease of native coronary artery with unspecified angina pectoris (principal); Z01.812 Encounter for preprocedural laboratory examination

== ENCOUNTER 2018-11-01 23:36 | Inpatient (IN) | payer MEDICARE ==
[~2018-11-01] VITALS: Ht 170.2 cm; Wt 70.3 kg
[2018-11-02 00:22] LABS: BASOPHILS 0.1 % (0-2); EOSINOPHILS 0.4 % (0-7); HEMATOCRIT 38.6 % (42.0-54.0); HEMOGLOBIN 12.8 g/dL (13.5-17.5); IMMATURE GRANULOCYTES 0.2 % (0-5); LYMPHOCYTES 3.3 % (15-50); MCH 30.4 pg (26.0-34.0); MCHC 33.2 g/dL (31.0-37.0); MCV 91.7 fL (80.0-100.0); MEAN PLATELET VOLUME 10.2 fL (7.4-10.4); PLATELET COUNT 186 10x3/uL (130-400); RBC 4.21 10x6/uL (4.20-6.10); RDW 14.3 % (11.5-14.5); WBC 9.6 10x3/uL (4.8-10.8)
[2018-11-02 00:38] LABS: APTT 28.4 SECONDS (22.8-39.4); INR 1.2 (0.85-1.17); PROTIME 14.7 SECONDS (11.6-15.0)
[2018-11-02 00:57] LABS: ALBUMIN 3.7 g/dL (3.4-5.0); ALKALINE PHOSPHATASE 88 U/L (46-116); ALT (SGPT) 19 U/L (10-68); BILIRUBIN - TOTAL 0.63 mg/dL (0.2-1.3); CALC OSMOLALITY 280 mosm/kg (275-300); CALCIUM 8.5 mg/dL (8.5-10.1); CHLORIDE - SERUM 103 mmol/L (98-107); CKMB 0.6 U/L (0.0-3.6); CREATINE KINASE 102 UL (21-232); CREATININE - SERUM 1.1 mg/dL (0.6-1.3); GLUCOSE 142 mg/dL (74-106); MAGNESIUM - SERUM 2.4 mg/dL (1.8-2.4); PROTEIN - SERUM 6.9 g/dL (6.4-8.2); SODIUM 139 mmol/L (136-145); THYROID STIMULATING HORMONE 1.37 uIU/mL (0.36-3.74); TROPONIN-I < 0.017 ng/mL (0.000-0.060); UREA NITROGEN 15 mg/dL (7-18); eGFR NON AFRICAN AMERICAN 68 mL/min (90-120)
--- NOTE | 2018-11-02 00:57 | NUR ---
ATTEMPTED TO CATH PATIENT X2 UNSUCCESSFUL. PT TOLERATED WELL. 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 2 ATTEMPT WAS WITH COUDE.
[2018-11-02 01:46] LABS: APPEARANCE CLOUDY (CLEAR); BILIRUBIN NEGATIVE (NEGATIVE); COLOR DK YELLOW (YELLOW); GLUCOSE NEGATIVE (NEGATIVE); KETONE NEGATIVE (NEGATIVE); NITRITE POSITIVE (NEGATIVE); PROTEIN 1+ mg/dL (NEGATIVE); SPECIFIC GRAVITY 1.015 (1.005-1.020); UROBILINOGEN NORMAL (NORMAL)
[2018-11-02 01:47] LABS: BACTERIA MANY /hpf (NONE SEEN); EPITHELIAL CELLS NSEEN /hpf (0-5); RED CELLS - URINE >50 /hpf (0-5); WHITE CELLS - URINE 25-50 /hpf (0-5)
--- NOTE | 2018-11-02 02:51 | NUR ---
PT ARRIVED TO M3 WITH HOSPITAL STAFF AND FAMILY MEMBERS, PT IS CONFUSED. CONTINUE MONITOR.
[2018-11-02 03:21] VITALS: BP 122/80; BMI 24.3
--- NOTE | 2018-11-02 07:35 | NUR ---
PT TRYING TO CLIMB OUT OF BED, REPOSTIONED PT BACK IN BED, AND ORIENTED HIM TO HIS SURROUNDINGS. PT REALLY HARD OF HEARING WAS NOT WEARING HEARING AIDS. PLACED ONE HEARING AID BACK ON BECAUSE OTHER HEARING AID IS BROKEN. SET PT UP FOR BREAKFAST AND ASSISTED PT TO USE URINAL. PT DENIES ANY NEEDS AT THIS TIME. CALL LIGHT IN REACH, MARILEE ALARM ON. NAD NOTED, WILL CONTINUE TO MONITOR.
[2018-11-02 08:59] VITALS: BP 125/69
[2018-11-02 12:00] VITALS: BP 121/66
--- NOTE | 2018-11-02 14:26 | NUR ---
ASSISTED PT WITH BED BATH, PT WAS ABLE TO DO THE WHOLE BATH EXCEPT FOR HELP WITH WASHING HIS BACK. COMPLETE LINEN CHANGE DONE ALSO. SCDS ON BILAT, MARILEE ALARM ON, BEDSIDE RAILS X2, CALL LIGHT IN REACH, NAD NOTED, WILL CONTINUE TO MONITOR.
[2018-11-02] MEDS ORDERED: PROSCAR5 MG PO (16:04)
[2018-11-02] MEDS ORDERED: ASCORBIC ACID500 MG PO (16:05)
[2018-11-02 17:38] VITALS: BP 127/79
--- NOTE | 2018-11-02 19:35 | NUR ---
LYING IN BED. ALERT AND ORIENTED TO SELF AND PLACE. CONFUSED. TRYING TO GET OOB CAUSING BED ALARM TO ACTIVATE. DIFFICULT TO REDIRECT. RESP IRREG. BBS CTA.O2 @ 2L/NC BUT KEEPS PULLING IT OFF. HAS PULLED OFF HIS GOWN. BRUISES NOTED TO BUE, BLE AND LT HIP WITH SCABS NOTED TO BILAT ELBOWS AND BLE. KASHIA. BILAT HEARING AIDES NOTED. SALINE LOCK NOTED TO RT FOREARM. SR ELEVATED X3. CL IN REACH.
[2018-11-02 23:31] VITALS: BP 122/54
--- NOTE | 2018-11-03 00:23 | NUR ---
HASNT SLEPT SO FAR. HAS BEEN RESTLESS AND TRYING TO GET OOB ALL NIGHT. VERY CONFUSED. STAFF HAS HAD TO SIT WITH HIM AT TIMES TO PREVENT HIM FROM CRAWLING OOB. DIFF TO REDIRECT, ORIENTED TO SELF ONLY AT THIS TIME. MARILEE ALARM ON. SR ELEVATED X3. CL IN REACH.
--- NOTE | 2018-11-03 05:07 | NUR ---
RESTING ON RT SIDE IN BED WITH EYES CLOSED. RESP NONLABORED. WAS AWAKE MOST OF NIGHT. SR ELEVATED X2. CL IN REACH. MARILEE ALARM ON.
--- NOTE | 2018-11-03 06:16 | NUR ---
REFUSED TO LET MOTION PICTURE COMMENTATOR GET V/S. UNCOOPERATIVE. PULLING AWAY FROM STAFF AND ATTEMPTING TO HIT THEM.
[2018-11-03 06:48] LABS: BASOPHILS 0.1 % (0-2); EOSINOPHILS 1.4 % (0-7); HEMATOCRIT 38.1 % (42.0-54.0); HEMOGLOBIN 12.4 g/dL (13.5-17.5); IMMATURE GRANULOCYTES 0.1 % (0-5); LYMPHOCYTES 14.4 % (15-50); MCH 29.9 pg (26.0-34.0); MCHC 32.5 g/dL (31.0-37.0); MCV 91.8 fL (80.0-100.0); MEAN PLATELET VOLUME 10.3 fL (7.4-10.4); MONOCYTES 14.8 % (2-11); NEUTROPHILS 69.2 % (40-80); PLATELET COUNT 164 10x3/uL (130-400); RBC 4.15 10x6/uL (4.20-6.10); RDW 14.5 % (11.5-14.5); WBC 7.6 10x3/uL (4.8-10.8)
[2018-11-03 07:06] LABS: ALBUMIN 3.1 g/dL (3.4-5.0); ALKALINE PHOSPHATASE 80 U/L (46-116); ALT (SGPT) 35 U/L (10-68); BILIRUBIN - TOTAL 0.47 mg/dL (0.2-1.3); CALC OSMOLALITY 280 mosm/kg (275-300); CALCIUM 8.3 mg/dL (8.5-10.1); CARBON DIOXIDE 28.3 mmol/L (21.0-32.0); CHLORIDE - SERUM 104 mmol/L (98-107); GLUCOSE 93 mg/dL (74-106); POTASSIUM - SERUM 3.7 mmol/L (3.5-5.1); PROTEIN - SERUM 6.3 g/dL (6.4-8.2); SODIUM 140 mmol/L (136-145); UREA NITROGEN 17 mg/dL (7-18); eGFR NON AFRICAN AMERICAN 76 mL/min (90-120)
[2018-11-03 08:30] VITALS: BP 139/44
--- NOTE | 2018-11-03 08:54 | NUR ---
POST VOID RESIDUAL WAS 25CC. AT THIS TIME.
--- NOTE | 2018-11-03 12:27 | NUR ---
Rehab Prescreening Consult recieved and the chart has been reviewed. He has a qualifying ARU diagnosis, but has a PT/OT/ST eval pending. Rehab will follow and see what he is able to do with therapy to determine whether he is able and willing to participate in the required 3 hrs aday of therapy required by Medicare guidlines. Aylin Cunha RN Clinical liaison, Rehab
[2018-11-03 12:41] VITALS: BP 111/69
--- NOTE | 2018-11-03 14:49 | NUR ---
HELPED PT TO USE URINAL AND REPOSITIONED HIM IN BED, PT DENIES ANY NEEDS AT THIS TIME. CALL LIGHT IN REACH, MARILEE ALARM ON, NAD NOTED, WILL CONTINUE TO MONITOR.
--- NOTE | 2018-11-03 15:13 | NUR ---
PT TO MRI.
[2018-11-03 15:18] VITALS: Ht 170.2 cm; Wt 70.3 kg
[2018-11-03 16:00] VITALS: BP 141/67
--- NOTE | 2018-11-03 16:11 | NUR ---
OT NOTE: PT COMPLETED GROOMING AND HYGINE TASKS WITH MIN A. PT COMPLETED BED MOB AND SITTING AT EOB WITH MIN/CGA. PT COMPLETED BUE AROM EXS. THANK YOU, REX MCKINNEY
--- NOTE | 2018-11-03 20:12 | NUR ---
ASSISTED PT TO BATHROOM AND BACK TO BED.
[2018-11-03 21:28] VITALS: BP 128/56
[2018-11-04] VITALS (7 sets, daily range): BP systolic 106–154; BP diastolic 55–88
--- NOTE | 2018-11-04 02:31 | NUR ---
ASSISTED PT TO BATHROOM AND BACK TO BED.
--- NOTE | 2018-11-04 03:38 | NUR ---
I have reviewed this patient and I concur with the Shift Assessment completed by the Licensed Practical Nurse today this shift.
--- NOTE | 2018-11-04 05:03 | NUR ---
REST IN BED, CALL LIGHT IN REACH.
[2018-11-04 06:37] LABS: BASOPHILS 0.1 % (0-2); EOSINOPHILS 2.3 % (0-7); HEMATOCRIT 37.8 % (42.0-54.0); HEMOGLOBIN 12.6 g/dL (13.5-17.5); IMMATURE GRANULOCYTES 0.3 % (0-5); LYMPHOCYTES 16.5 % (15-50); MCH 30.2 pg (26.0-34.0); MCHC 33.3 g/dL (31.0-37.0); MCV 90.6 fL (80.0-100.0); MEAN PLATELET VOLUME 10.2 fL (7.4-10.4); MONOCYTES 12.2 % (2-11); NEUTROPHILS 68.6 % (40-80); RBC 4.17 10x6/uL (4.20-6.10); RDW 14.5 % (11.5-14.5); WBC 7.5 10x3/uL (4.8-10.8)
[2018-11-04 06:45] LABS: PLATELET COUNT 199 10x3/uL (130-400)
[2018-11-04 07:02] LABS: ALBUMIN 2.9 g/dL (3.4-5.0); ALKALINE PHOSPHATASE 104 U/L (46-116); ALT (SGPT) 35 U/L (10-68); BILIRUBIN - TOTAL 0.51 mg/dL (0.2-1.3); CALC OSMOLALITY 283 mosm/kg (275-300); CALCIUM 8.3 mg/dL (8.5-10.1); CARBON DIOXIDE 28.2 mmol/L (21.0-32.0); CHLORIDE - SERUM 105 mmol/L (98-107); CREATININE - SERUM 0.9 mg/dL (0.6-1.3); GLUCOSE 92 mg/dL (74-106); POTASSIUM - SERUM 3.6 mmol/L (3.5-5.1); PROTEIN - SERUM 6.5 g/dL (6.4-8.2); SODIUM 141 mmol/L (136-145); UREA NITROGEN 20 mg/dL (7-18); eGFR NON AFRICAN AMERICAN 85 mL/min (90-120)
--- NOTE | 2018-11-04 13:51 | NUR ---
THIS NURSE AGREES WITH THE DISTANCE EDUCATION TEACHER ASSESSMENT AND CHARTING
--- NOTE | 2018-11-04 15:03 | NUR ---
OT NOTE: PT PERFORMED WELL. BED MOB WITH SBA. ABLE TO DOFF AND [place] PULL UP WITH MIN ASSIST WHILE ON EDGE OF BED; ABLE TO PERFORM SINK HYGIENE WITH VACUUM DRIER TENDER TO AMB TO SINK. UE AROM EXS FOR STRENGTHENING AND ENDURANCE. LAURA FERRO, OTR/L
--- NOTE | 2018-11-04 15:20 | NUR ---
OT NOTE: PT COMPLETED BED MOB AND SUPINE TO SIT WITH CGA. PT COMPLETED SIT TO STAND WITH SBA/CGA. PT COMPLETEED BUE AROM EXS. PT COMPLETED SIMPLE HYGIENE WITH SET UP AT EOB. THANK YOU, REX MCKINNEY
--- NOTE | 2018-11-04 19:20 | NUR ---
PT SITTING ON SIDE OF BED MAKING BED. CALL LIGHT IN REACH. PT DENIES NEEDS OR PAIN AT THIS TIME. INTRODUCED SELF TO PT. RESP EVEN AND UNLABORED. WILL CONTINUE TO MONITOR.
[2018-11-05] VITALS: BP 165/88
--- NOTE | 2018-11-05 01:38 | NUR ---
PT RESTING QUIETLY. CALL LIGHT IN REACH. NO SIGNS OF DISTRESS OR PAIN. BED ALARM ON.
--- NOTE | 2018-11-05 04:20 | NUR ---
I have reviewed this patient and I concur with the Shift Assessment completed by the Licensed Practical Nurse today this shift.
[2018-11-05 04:30] VITALS: BP 166/91
--- NOTE | 2018-11-05 07:05 | NUR ---
PT SITTING UP IN BED. NO C/O PAIN. NO S/S OF ACUTE DISTRESS NOTED. MARILEE ALARM ON AND WORKING. STEADY GAIT. SKIN TEAR TO RIGHT HAND, DRESSING C/D/I. ON 2L O2, NC. IV TO RIGHT WRIST, SL. SITE PATENT WITHOUT REDNESS OR SWELLING. PT DENIES ANYTHING FURTHER AT THIS TIME. CALL LIGHT IN REACH. WILL CONTINUE TO MONITOR.
[2018-11-05 07:13] LABS: BASOPHILS 0.1 % (0-2); EOSINOPHILS 2.4 % (0-7); HEMATOCRIT 39.3 % (42.0-54.0); HEMOGLOBIN 12.9 g/dL (13.5-17.5); IMMATURE GRANULOCYTES 0.3 % (0-5); LYMPHOCYTES 21.7 % (15-50); MCH 29.9 pg (26.0-34.0); MCHC 32.8 g/dL (31.0-37.0); MEAN PLATELET VOLUME 10.1 fL (7.4-10.4); MONOCYTES 10.8 % (2-11); NEUTROPHILS 64.7 % (40-80); PLATELET COUNT 217 10x3/uL (130-400); RBC 4.32 10x6/uL (4.20-6.10); RDW 14.2 % (11.5-14.5); WBC 7.1 10x3/uL (4.8-10.8)
[2018-11-05 07:26] LABS: ALBUMIN 3.2 g/dL (3.4-5.0); ALKALINE PHOSPHATASE 154 U/L (46-116); BILIRUBIN - TOTAL 0.56 mg/dL (0.2-1.3); CALCIUM 8.4 mg/dL (8.5-10.1); CARBON DIOXIDE 29.3 mmol/L (21.0-32.0); CHLORIDE - SERUM 105 mmol/L (98-107); CREATININE - SERUM 0.8 mg/dL (0.6-1.3); GLUCOSE 96 mg/dL (74-106); POTASSIUM - SERUM 3.5 mmol/L (3.5-5.1); PROTEIN - SERUM 6.8 g/dL (6.4-8.2); SODIUM 142 mmol/L (136-145); eGFR NON AFRICAN AMERICAN > 90 mL/min (90-120)
[2018-11-05 07:33] LABS: ALT (SGPT) 53 U/L (10-68); CALC OSMOLALITY 282 mosm/kg (275-300); UREA NITROGEN 12 mg/dL (7-18)
[2018-11-05 08:55] VITALS: BP 136/69
[2018-11-05] MEDS ORDERED: LEVAQUIN750 MG PO (09:28)
[2018-11-05 11:41] VITALS: BP 167/92
--- NOTE | 2018-11-05 12:05 | MORECARE ---
CASE MANAGEMENT DISCHARGE SUMMARY PATIENT: SHADE PAINTER UNIT: [id number] ADM DATE: 11/02/18 AGE: 83 : 34 SEX: M ROOM/BED: D.1209 AUTHOR: MELISSA VÁSQUEZ PHYSICIAN: REFERRING PHYSICIAN: CHARITY COLMENARES MD DATE OF SERVICE: 11/05/18 Discharge Plan Patient Name: SHADE PAINTER [facility] [facility] 1935 Planned Disposition: Home Anticipated Discharge Date: 11/05/18 Discharge Date: Expected LOS: 3 Initial Reviewer: [email or web address] Initial Review Date: 11/05/2018 Generated: 11/05/18 1:05 pm DCP- Discharge Planning Updated by [email or web address]: Marina Becerra on 11/03/18 2:[address] 1510 CM TO VISIT FOR DISCHARGE PLANNING ASSESSMENT. HOWEVER MRI STAFF CAME TO TAKE PATIENT FOR STUDY. SPEECH THERAPY, ABRAHAM, CAME TO DO SPEECH EVAL. CM TO FOLLOW. Patient Name: SHADE PAINTER Page [phone] at 1205 All edits/amendments must be made on the electronic document DICTATION DATE: 11/05/18 1205 RETORT FIREMAN: MARCELA 11/05/18 1205 RPT#: [id number] DC DATE: STATUS: ADM IN [facility] [address] [place] [address] END OF REPORT
--- NOTE | 2018-11-05 12:28 | MORECARE ---
CASE MANAGEMENT DISCHARGE SUMMARY PATIENT: SHADE PAINTER UNIT: [id number] ADM DATE: 11/02/18 AGE: 83 : 34 SEX: M ROOM/BED: D.1209 AUTHOR: MELISSA VÁSQUEZ PHYSICIAN: REFERRING PHYSICIAN: CHARITY COLMENARES MD DATE OF SERVICE: 11/05/18 Discharge Plan Patient Name: SHADE PAINTER [facility] [facility] 1935 Planned Disposition: Home Anticipated Discharge Date: 11/05/18 Discharge Date: Expected LOS: 3 Initial Reviewer: [email or web address] Initial Review Date: 11/05/2018 Generated: 11/05/18 1:28 pm DCP- Discharge Planning Updated by [email or web address]: Marina Becerra on 11/03/18 2:[address] 1510 CM TO VISIT FOR DISCHARGE PLANNING ASSESSMENT. HOWEVER MRI STAFF CAME TO TAKE PATIENT FOR STUDY. SPEECH THERAPY, ABRAHAM, CAME TO DO SPEECH EVAL. CM TO FOLLOW. Last DP export: 11/05/18 11:05 a Patient Name: SHADE PAINTER Page [phone] at 1228 All edits/amendments must be made on the electronic document DICTATION DATE: 11/05/181227 WILDERNESS GUIDE: MARCELA 11/05/188 RPT#: [id number] DC DATE: STATUS: ADM IN [facility] [address] [place] [address] END OF REPORT
--- NOTE | 2018-11-05 12:45 | MORECARE ---
CASE MANAGEMENT DISCHARGE SUMMARY PATIENT: SHADE SALAS UNIT: [id number] ADM DATE: 11/02/18 AGE: 83 : 34 SEX: M ROOM/BED: D.1209 AUTHOR: FAHAD,DOC PHYSICIAN: REFERRING PHYSICIAN: CHARITY COLMENARES MD DATE OF SERVICE: 11/05/18 Discharge Plan Patient Name: SHADE SALAS Facility: [facility]:[place] : 1935 Planned Disposition: Home Anticipated Discharge Date: 11/05/18 Discharge Date: Expected LOS: 3 Initial Reviewer: [email or web address] Initial Review Date: 11/05/2018 Generated: 11/05/18 1:45 pm Comments DCP- Discharge Planning Updated by [email or web address]: Verito Neeyl on 11/05/18 11:[address] Patient Name: SHADE SALAS Admission Status: ER Accout number: [id number] Admission Date: 11-02-2018 : 1935 Admission Diagnosis: Attending: CHARITY COLMENARES Current LOS: 3 Anticipated DC Date: 11-05-2018 Planned Disposition: Home Primary Insurance: MEDICARE A & B Discharge Planning Comments: CM met with patient about discharge planning / needs. Patient informed CM that he has Oxygen at home that he wears at night. Denies need for Home Health services or any other needs at this time. CM explained and served DC IMM. Patient requested CM call his to arrange transport home. CM called patient's , Barron Salas [phone]. Patient's informed that patient will discharge to home today. Spouse states she will picked edge sewing machine operator patient after her 13:00 MD appointment. CM asked spouse what DME provides patient's Oxygen as he could not remember. Spouse informed CM that patient did not have home oxygen. States the Oxygen used to be their daughter's and the patient uses it. CM obtained order for walk test to see if patient qualifies for home Oxygen. CM called Dr. Concepcion's office to see if patient had history of CHF or COPD to qualify for home Oxygen. Spoke with Samantha who informed LB that patient has history of afib and coronary artery disease. No Hx of CHF or COPD. LB informed Samantha that patient has been using his daughter's home O2 at bedtime. Samantha verbalized understanding. Water Regulator And Valve Repairer: Verito Neely DCP- Discharge Planning Updated by [email or web address]: Marina Becerra on 11/03/18 2:[address] 1510 CM TO VISIT FOR DISCHARGE PLANNING ASSESSMENT. HOWEVER MRI STAFF CAME TO TAKE PATIENT FOR STUDY. SPEECH THERAPY, ABRAHAM, CAME TO DO SPEECH EVAL. CM TO FOLLOW. DCPIA - Discharge Planning Initial Assessment Updated by [email or web address]: Verito Neely on 11/05/18 12:28 pm * Is the patient Alert and Oriented? Yes * How many steps to enter\exit or inside your home? * PCP Dr. Concepcion * Pharmacy [facility] * Preadmission Environment Home with Family * ADLs Independent * Equipment Oxygen * List name and contact numbers for known caregivers / representatives who currently or will assist patient after discharge: Barron Salas, spouse, * Verbal permission to speak to the caregivers and representatives has been obtained from the patient. Yes * Community resources currently utilized None * Additional services required to return to the preadmission environment? No * Can the patient safely return to the preadmission environment? Yes * Has this patient been hospitalized within the prior 30 days at any hospital? No Coverage Notice Reviewer: [id number] - Verito Neely Notice Issued Date-Time: 11/05/2018 12:00 Notice Type: IM Discharge Notice Notice Delivered To: Patient Relationship to Patient: Self Business Development Manager Name: Delivery Method: HAND - Hand Delivered Maryjane Days: Prior Verbal Notification: Recipient Understood Notice: Yes Recipient Signature: Yes Med Rec Note Co-signed by Attending: Coverage Notice Comment: Last DP export: 11/05/18 11:28 a Patient Name: SHADE SALAS Page 16065 at 1245 All edits/amendments must be made on the electronic document DICTATION DATE: 11/05/181243 MANAGER EPIC: MARCELA 11/05/184 RPT#: [id number] [place] DATE: STATUS: ADM IN [facility] [address] [place] [address] END OF REPORT
--- NOTE | 2018-11-05 13:50 | MORECARE ---
CASE MANAGEMENT DISCHARGE SUMMARY PATIENT: SHADE SALAS UNIT: [id number] ADM DATE: 11/02/18 AGE: 83 : 34 SEX: M ROOM/BED: D.1209 AUTHOR: FAHAD,DOC PHYSICIAN: REFERRING PHYSICIAN: CHARITY COLMENARES MD DATE OF SERVICE: 11/05/18 Discharge Plan Patient Name: SHADE SALAS Facility: [facility]:[place] : 1935 Planned Disposition: Home Anticipated Discharge Date: 11/05/18 Discharge Date: Expected LOS: 3 Initial Reviewer: [email or web address] Initial Review Date: 11/05/2018 Generated: 11/05/18 2:50 pm Comments DCP- Discharge Planning Updated by [email or web address]: Verito Neely on 11/05/18 12:[address] CM informed by RT that patient does not qualify for home O2. O2 Sat at rest on Room Air 97. Walk Test showed O2 sat at exertion on room at 97%. CM informed patient and his that he did not qualify for home O2. Both verbalized understanding. DCP- Discharge Planning Updated by [email or web address]: Verito Neely on 11/05/18 11:[address] Patient Name: SHADE SALAS Admission Status: ER Accout number: [id number] Admission Date: 11-02-2018 : 1935 Admission Diagnosis: Attending: CHARITY COLMENARES Current LOS: 3 Anticipated DC Date: 11-05-2018 Planned Disposition: Home Primary Insurance: MEDICARE A & B Discharge Planning Comments: CM met with patient about discharge planning / needs. Patient informed CM that he has Oxygen at home that he wears at night. Denies need for Home Health services or any other needs at this time. CM explained and served DC IMM. Patient requested CM call his to arrange transport home. CM called patient's , Barron Salas [phone]. Patient's informed that patient will discharge to home today. Spouse states she will picking supervisor patient after her 13:00 MD appointment. CM asked spouse what DME provides patient's Oxygen as he could not remember. Spouse informed CM that patient did not have home oxygen. States the Oxygen used to be their daughter's and the patient uses it. CM obtained order for walk test to see if patient qualifies for home Oxygen. CM called Dr. Concepcion's office to see if patient had history of CHF or COPD to qualify for home Oxygen. Spoke with Samantha who informed CM that patient has history of afib and coronary artery disease. No Hx of CHF or COPD. CM informed Samantha that patient has been using his daughter's home O2 at bedtime. Samantha verbalized understanding. Music Therapy Specialist: Verito Neely DCP- Discharge Planning Updated by [email or web address]: Marina Becerra on 11/03/18 2:[address] 1510 CM TO VISIT FOR DISCHARGE PLANNING ASSESSMENT. HOWEVER MRI STAFF CAME TO TAKE PATIENT FOR STUDY. SPEECH THERAPY, ABRAHAM, CAME TO DO SPEECH EVAL. CM TO FOLLOW. DCPIA - Discharge Planning Initial Assessment Updated by [email or web address]: Verito Neely on 11/05/18 12:28 pm * Is the patient Alert and Oriented? Yes * How many steps to enter\exit or inside your home? * PCP Dr. Concepcion * Pharmacy [facility] * Preadmission Environment Home with Family * ADLs Independent * Equipment Oxygen * List name and contact numbers for known caregivers / representatives who currently or will assist patient after discharge: Barron Salas, spouse, * Verbal permission to speak to the caregivers and representatives has been obtained from the patient. Yes * Community resources currently utilized None * Additional services required to return to the preadmission environment? No * Can the patient safely return to the preadmission environment? Yes * Has this patient been hospitalized within the prior 30 days at any hospital? No Coverage Notice Reviewer: [id number] - Verito Neely Notice Issued Date-Time: 11/05/2018 12:00 Notice Type: IM Discharge Notice Notice Delivered To: Patient Relationship to Patient: Self Oil Burner Name: Delivery Method: HAND - Hand Delivered Maryjane Days: Prior Verbal Notification: Recipient Understood Notice: Yes Recipient Signature: Yes Med Rec Note Co-signed by Attending: Coverage Notice Comment: Last DP export: 11/05/18 11:45 a Patient Name: SHADE SALAS Page 98303 at 1350 All edits/amendments must be made on the electronic document DICTATION DATE: 11/05/18 135 EYEGLASS CUTTER: DM 11/05/18 1350 RPT#: [id number] DC DATE: STATUS: ADM IN [facility] [address] [place] [address] END OF REPORT
--- NOTE | 2018-11-05 13:55 | NUR ---
PT DISCHARGED HOME WITH VIA WHEELCHAIR ACCOMPANIED BY HOSPITAL STAFF. IV DISCONTINUED, CATHETER TIP INTACT. ROSITA GIFFORD WENT OVER DISCHARGE INSTRUCTIONS WITH PT AND . INSTRUCTIONS ACKNOWLEDGED. PT DENIES ANYTHING FURTHER.
--- NOTE | 2018-11-05 17:04 | MORECARE ---
CASE MANAGEMENT DISCHARGE SUMMARY PATIENT: SHADE SALAS UNIT: [id number] ADM DATE: 11/02/18 AGE: 83 : 34 SEX: M ROOM/BED: D.1209 AUTHOR: FAHAD,DOC PHYSICIAN: REFERRING PHYSICIAN: CHARITY COLMENARES MD DATE OF SERVICE: 11/05/18 Discharge Plan Patient Name: SHADE SALAS Facility: [facility]:[place] : 1935 Planned Disposition: Home Anticipated Discharge Date: 11/05/18 Discharge Date: 11/05/2018 Expected LOS: 3 Initial Reviewer: [email or web address] Initial Review Date: 11/05/2018 Generated: 11/05/18 6:04 pm Comments DCP- Discharge Planning Updated by [email or web address]: Verito Neely on 11/05/18 12:[address] CM informed by RT that patient does not qualify for home O2. O2 Sat at rest on Room Air 97. Walk Test showed O2 sat at exertion on room at 97%. CM informed patient and his that he did not qualify for home O2. Both verbalized understanding. DCP- Discharge Planning Updated by [email or web address]: Verito Neely on 11/05/18 11:[address] Patient Name: SHADE SALAS Admission Status: ER Accout number: [id number] Admission Date: 11-02-2018 : 1935 Admission Diagnosis: Attending: CHARITY COLMENARES Current LOS: 3 Anticipated DC Date: 11-05-2018 Planned Disposition: Home Primary Insurance: MEDICARE A & B Discharge Planning Comments: CM met with patient about discharge planning / needs. Patient informed CM that he has Oxygen at home that he wears at night. Denies need for Home Health services or any other needs at this time. CM explained and served DC IMM. Patient requested CM call his to arrange transport home. CM called patient's , Barron Salas [phone]. Patient's informed that patient will discharge to home today. Spouse states she will pickling drum operator patient after her 13:00 MD appointment. CM asked spouse what DME provides patient's Oxygen as he could not remember. Spouse informed CM that patient did not have home oxygen. States the Oxygen used to be their daughter's and the patient uses it. CM obtained order for walk test to see if patient qualifies for home Oxygen. CM called Dr. Concepcion's office to see if patient had history of CHF or COPD to qualify for home Oxygen. Spoke with Samantha who informed CM that patient has history of afib and coronary artery disease. No Hx of CHF or COPD. CM informed Samantha that patient has been using his daughter's home O2 at bedtime. Samantha verbalized understanding. Vulcanizer Operator: Verito Neely DCP- Discharge Planning Updated by [email or web address]: Marina Becerra on 11/03/18 2:[address] 1510 CM TO VISIT FOR DISCHARGE PLANNING ASSESSMENT. HOWEVER MRI STAFF CAME TO TAKE PATIENT FOR STUDY. SPEECH THERAPY, ABRAHAM, CAME TO DO SPEECH EVAL. CM TO FOLLOW. DCPIA - Discharge Planning Initial Assessment Updated by [email or web address]: Verito Neely on 11/05/18 12:28 pm * Is the patient Alert and Oriented? Yes * How many steps to enter\exit or inside your home? * PCP Dr. Concepcion * Pharmacy [facility] * Preadmission Environment Home with Family * ADLs Independent * Equipment Oxygen * List name and contact numbers for known caregivers / representatives who currently or will assist patient after discharge: Barron Salas, spouse, * Verbal permission to speak to the caregivers and representatives has been obtained from the patient. Yes * Community resources currently utilized None * Additional services required to return to the preadmission environment? No * Can the patient safely return to the preadmission environment? Yes * Has this patient been hospitalized within the prior 30 days at any hospital? No Coverage Notice Reviewer: [id number] - Verito Neely Notice Issued Date-Time: 11/05/2018 12:00 Notice Type: IM Discharge Notice Notice Delivered To: Patient Relationship to Patient: Self Fleece Tier Name: Delivery Method: HAND - Hand Delivered Maryjane Days: Prior Verbal Notification: Recipient Understood Notice: Yes Recipient Signature: Yes Med Rec Note Co-signed by Attending: Coverage Notice Comment: Last DP export: 11/05/18 12:50 p Patient Name: SHADE SALAS Page 30307 at 1704 All edits/amendments must be made on the electronic document DICTATION DATE: 11/05/181703 COLLEGE PROFESSOR: MARCELA 11/05/181703 RPT#: [id number] DC DATE:11/05/18 STATUS: DIS IN [facility] [address] [place] [place] [address] END OF REPORT
--- NOTE | 2018-11-07 15:03 | EC ---
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 DATE OF SERVICE: 11/02/18 SEX: M MEDICAL RECORD: [id number] DATE OF : [birth year] LOCATION:D.M3 D.120 AGE OF PATIENT: 83 ADMISSION DATE: 11/02/18 REFERRING PHYSICIAN: INTERPRETING PHYSICIAN: ELINA VICTOR MD ECHOCARDIOGRAM REPORT ECHO CHARGES 4 ECHO COMPLETE Date: 11/03/18 CLINICAL DIAGNOSIS: ASSESS FOR VEGATATATION ECHOCARDIOGRAPHIC MEASUREMENTS (adult normal given) AC root (d.<3.7cm) 3.6 cm LV Septum d (<1.2 cm> 1.6 cm Valve Excursion 2.2 cm LV Septum (systole) 1.7 cm Left Atria (s.<4.0cm> 4.4 cm LVPW d(<1.2cm) 1.3 cm RV (d.<2.3cm) 3.2 cm LVPW (sytole) 1.9 cm LV diastole(<5.6CM) 4.9 cm MV E-F(>70mm/sec) cm LV systole 3.1 cm LVOT Diameter 2.1 cm MV exc.(>10mm) 1.7 cm Est.ejection fraction (50-75%) % DOPPLER: LVIT cm/sec A 128 cm/sec E 67.0 cm/sec LA cm/sec RVSP 28 mmHg LVOT 106 cm/sec AOP1/2T m/s Asc. Ao 147 cm/sec RVOT 82 cm/sec RA cm/sec PA 102 cm/sec AV Gradient Peak 8.59 mmHg AV Mean 4.88 mmHg AV Area 2.9 cm MV Gradient Peak 7.36 mmHg MV Mean 2.33 mmHg MV Area cm COMMENTS: Console Attendant: 2 BERNARDO BANEGAS Bridge Saw Operator: 1 Dr. Victor TAPE# PACS Pericardial Effusion N DATE OF SERVICE: FINDINGS: 1. Left ventricular chamber size is within normal limits. Left ventricular systolic function is normal. Overall ejection fraction estimated at 60%. 2. Left atrium is enlarged at 4.4 cm. Right atrium and right ventricular chamber sizes are as well mildly dilated. 3. Valvular structures have normal structure and motion. 4. Doppler interrogation reveals mild mitral regurgitation, mild tricuspid regurgitation, no other valvular insufficiency or stenosis. ECHOCARDIOGRAM REPORT [id number] SHADE PAINTER 5. No evidence of pericardial effusion or left ventricular thrombus. 6. No evidence of vegetative endocarditis. TRANSINT:[id number] Voice Confirmation ID: [id number] DOCUMENT ID: [id number] ELINA VICTOR MD at 1503 CC: [id number] DICTATION DATE: 11/03/18 1616 AEROPLANE PILOT: 11/03/181946 DIS IN 11/05/18 [facility] [address] [place] [address]
== END 2018-11-05 13:57 | disposition home or self-care (01) | DRG 871 ==
LOC: D.ER 23:36 → D.EDHOLD 11-02 01:52 → D.M3 11-02 01:52
PROVIDERS: Emergency Medicine; Internal Medicine Nephrology; ADMIT Emergency Medicine; ATTEND Emergency Medicine
DX: A41.9 Sepsis, unspecified organism (principal); G93.41 Metabolic encephalopathy; N39.0 Urinary tract infection, site not specified; D64.9 Anemia, unspecified; G93.89 Other specified disorders of brain; I25.10 Atherosclerotic heart disease of native coronary artery without angina pectoris; I48.91 Unspecified atrial fibrillation; N40.0 Benign prostatic hyperplasia without lower urinary tract symptoms; Z86.73 Personal history of transient ischemic attack (TIA), and cerebral infarction without residual deficits

== ENCOUNTER → 2018-12-01 18:47 | Outpatient (CLI) | payer MEDICARE ==
[2018-11-03 15:18] VITALS: BMI 24.2
[~2018-12-01 18:47] MED LIST changes: +ASCORBIC ACID500 MG PO; +LEVAQUIN750 MG PO; +PROSCAR5 MG PO
== END | disposition home or self-care (01) ==
LOC: D.LABREF 18:47
PROVIDERS: ATTEND Urology
DX: R31.9 Hematuria, unspecified (principal)

== ENCOUNTER → 2018-12-05 09:56 | Outpatient (CLI) | payer MEDICARE, OTHER ==
[~2018-12-05 09:56] MED LIST changes: +ASPIRIN EC81 M1 PO; +CO Q-10100 MG PO; +OMEGA-3100 MG PO
== END | disposition home or self-care (01) ==
LOC: D.CT 09:56
DX: R31.21 Asymptomatic microscopic hematuria (principal)

== ENCOUNTER → 2019-01-07 14:20 | Outpatient (CLI) | payer MEDICARE, OTHER ==
[2018-11-03 15:18] VITALS: BMI 24.2
[~2019-01-07 14:20] MED LIST changes: -ASPIRIN EC81 M1 PO; -CO Q-10100 MG PO; -OMEGA-3100 MG PO
== END | disposition home or self-care (01) ==
LOC: D.US 14:20
PROVIDERS: ATTEND Urology
DX: N28.1 Cyst of kidney, acquired (principal)

== ENCOUNTER 2019-01-15 09:35 | Day surgery (SDC) | payer MEDICARE, OTHER ==
[2019-01-13 11:06] LABS: CALC OSMOLALITY 283 mosm/kg (275-300); CALCIUM 9.1 mg/dL (8.5-10.1); CARBON DIOXIDE 32.1 mmol/L (21.0-32.0); CHLORIDE - SERUM 105 mmol/L (98-107); CREATININE - SERUM 0.7 mg/dL (0.6-1.3); GLUCOSE 105 mg/dL (74-106); POTASSIUM - SERUM 4.1 mmol/L (3.5-5.1); SODIUM 143 mmol/L (136-145); UREA NITROGEN 9 mg/dL (7-18); eGFR NON AFRICAN AMERICAN > 90 mL/min (90-120)
[2019-01-13 11:09] LABS: BASOPHILS 0.3 % (0-2); EOSINOPHILS 1.7 % (0-7); HEMATOCRIT 43.3 % (42.0-54.0); HEMOGLOBIN 14.6 g/dL (13.5-17.5); IMMATURE GRANULOCYTES 0.1 % (0-5); LYMPHOCYTES 22.1 % (15-50); MCH 31.1 pg (26.0-34.0); MCHC 33.7 g/dL (31.0-37.0); MCV 92.1 fL (80.0-100.0); MONOCYTES 8.6 % (2-11); NEUTROPHILS 67.2 % (40-80); PLATELET COUNT 239 10x3/uL (130-400); RDW 14.1 % (11.5-14.5); WBC 7.7 10x3/uL (4.8-10.8)
[2019-01-13 11:11] LABS: APTT 28.5 SECONDS (22.8-39.4); INR 1.08 (0.85-1.17); PROTIME 13.5 SECONDS (11.6-15.0)
[2019-01-13 11:20] LABS: APPEARANCE CLEAR (CLEAR); BILIRUBIN NEGATIVE (NEGATIVE); COLOR YELLOW (YELLOW); GLUCOSE NEGATIVE (NEGATIVE); KETONE NEGATIVE (NEGATIVE); NITRITE NEGATIVE (NEGATIVE); PROTEIN NEGATIVE (NEGATIVE); UROBILINOGEN NORMAL (NORMAL)
[2019-01-15 10:08] VITALS: BP 147/84; BMI 23.5
--- NOTE | 2019-01-15 12:13 | NUR ---
MARIA R ARIZA WITH [facility] PRESENT BROUGHT ALL EQUIPMENT C-ARM AND LITHOTRIPSY AND DAYLIN, TRENT.
--- NOTE | 2019-01-15 13:35 | NUR ---
REC'D FROM RR. FAMILY AT BEDSIDE. FL TRAY AND [place] [facility] [place] SODA SERVED TO PT. MONTIEL TO GRAVITY DRAINAGE WITH BLOOD TINGED URINE NOTED. MONTIEL CATH CARE SHEET GIVEN TO PT AND SPOUSE.
--- NOTE | 2019-01-15 14:05 | NUR ---
TOLERATED FL TRAY. DENIES NEEDS.
--- NOTE | 2019-01-15 14:35 | NUR ---
IV DC'D WITH CATHETER INTACT.
--- NOTE | 2019-01-15 14:45 | NUR ---
WRITTEN AND VERBAL DC INSTRUCTIONS GIVEN TO PT AND SPOUSE ALONG WITH RX. VERBALIZED UNDERSTANNDING.
--- NOTE | 2019-01-15 15:10 | NUR ---
DC'D HOME WITH FAMILY VIA PRIVATE VEHICLE. STABLE AT TIME OF DC.
--- NOTE | 2019-01-15 15:34 | OP ---
PATIENT NAME: SHADE PAINTER JR MEDICAL RECORD: [id number] :[birth year] LOCATION:D.OPS ADMISSION DATE: SURGEON: SHREE AGUILAR MD DATE OF OPERATION: 01/15/2019 SURGEON: Shree Aguilar MD ANESTHESIA: General anesthesia by Shruthi Hess CRNA DIAGNOSES: 1. Left lower pole renal stone, 5 mm. 2. Bulbar urethral stricture. 3. 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 PROCEDURES: 1. Left extracorporeal shock wave lithotripsy (ESWL times 2000 shocks, power level 7). 2. Cystoscopy with direct vision internal urethrotomy of bulbar urethral stricture. 3. Intravesical Botox injection 100 units. 4. Left ureteral stent insertion, 6-Moroccan x 24 cm, with string attached. FINDINGS: 1. Radiodense left renal stones, 5 mm 2. Bulbar urethral stricture. 3. Nonobstructive prostate. 4. Single ureteral orifices bilaterally with radiation cystitis. No bladder tumors. BLOOD LOSS: None. CLINICAL HISTORY: This is an 83-year-old male who has had prostate cancer in the past, treated with brachytherapy. He now has intractable urge urinary incontinence. He comes today to have cystoscopy and intravesical Botox injected. As well, when we did his imaging, we found that he had a 5-mm left lower pole renal stone. At the same time, he wishes to have lithotripsy done on his stone to break it up. We will insert a left ureteral stent. He has no allergies to medication. He was given Ancef on-call to the OR. DESCRIPTION OF PROCEDURE: The patient was placed in supine position. He was given induction of general anesthesia. The stone was targeted in 2 planes and 2000 shocks were given to it. It broke up by the time 2000 shocks were given and it could no longer be seen. At that point, we stopped the lithotripsy. At the same time that the lithotripsy was going on, we performed cystoscopy. A 21-Moroccan cystoscope with 30-degree lens was used for visualization. We encountered a very tight bulbar urethral stricture, which the scope could not pass. A Sensor wire was passed through the stricture and into the bladder. The cystoscope was removed and an optic urethrotome was inserted with a 12-degree lens and a cold knife blade. The knife blade was used to cut the stricture at the 12 o'clock position. Finally, the scope could pass through into the prostatic urethra, which is not obstructive. Also, the scope was able to pass into the bladder. We removed the optic urethrotome and switched back to the cystoscope. Once the cystoscope was in the bladder, the guidewire was placed back through the cystoscope and up into the left ureteral orifice. Over the OPERATIVE REPORT [id number] SHADE PAINTER JR wire, we inserted the 6-Moroccan x 24-cm ureteral stent. Once the stent was in correct position, the wire was withdrawn entirely. The distal end of the stent was pushed into the bladder using a pusher. The string on the distal end of stent was maintained. It was kept and hangs out of the urethra. It was tied to itself in a knot and cut shorter. We then reentered the bladder with the cystoscope. We used a cystoscopic injection needle, and in 10 different locations, we injected the bladder with 1 mL of Botox solution. Each milliliter of solution has 10 units of Botox dissolved in it. A total of 100 units of Botox was thus given. We spared the trigone and the ureteral orifices. Finally, the injection needle was removed. The wire was placed back into the bladder. The scope was removed, leaving the wire in place. Over the wire, we inserted a 16-Moroccan [place] tip Peacock catheter. Once the catheter was fully in the bladder, we then inflated the Peacock balloon with 10 cc of sterile water. The wire was then removed entirely. The catheter was put to bag drainage. I will see the patient in followup next week to remove the Peacock catheter. We will also get a KUB to be sure that he has passed all of the stone debris. TRANSINT:[id number] Voice Confirmation ID: [id number] DOCUMENT ID: [id number] SHREE AGUILAR MD at 1534 CC: [id number] DICTATION DATE: 01/15/19 1241 CONVEYOR BELT INSTALLER: 01/15/[address] [facility] [address] [place] [id number]
[2019-04-27] MEDS ORDERED: ASPIRIN EC81 M1 PO (10:30)
== END 2019-01-15 15:10 | disposition home or self-care (01) ==
LOC: D.OPS 09:35 → D.PAN 11:15 → D.OPS 11:15
PROVIDERS: Anesthesiology; ATTEND Urology
DX: N20.0 Calculus of kidney (principal); N35.812 Other bulbous urethral stricture, male; N39.41 Urge incontinence; N30.40 Irradiation cystitis without hematuria; Z01.812 Encounter for preprocedural laboratory examination

== ENCOUNTER → 2019-01-23 11:06 | Outpatient (CLI) | payer MEDICARE, OTHER ==
[2019-01-15 10:08] VITALS: BMI 23.5
== END | disposition home or self-care (01) ==
LOC: D.RAD 11:06
PROVIDERS: ATTEND Urology
DX: N20.0 Calculus of kidney (principal)

== ENCOUNTER 2019-04-28 06:57 | Outpatient (CLI) | payer MEDICARE, OTHER ==
[2019-04-27 11:06] LABS: BASOPHILS 0.1 % (0-2); EOSINOPHILS 1.9 % (0-7); HEMATOCRIT 38.1 % (42.0-54.0); IMMATURE GRANULOCYTES 0.1 % (0-5); LYMPHOCYTES 17.6 % (15-50); MCHC 34.1 g/dL (31.0-37.0); MCV 90.7 fL (80.0-100.0); MEAN PLATELET VOLUME 9.6 fL (7.4-10.4); MONOCYTES 9.3 % (2-11); RDW 14.9 % (11.5-14.5); WBC 6.8 10x3/uL (4.8-10.8)
[2019-04-27 11:14] LABS: CALC OSMOLALITY 289 mosm/kg (275-300); CALCIUM 8.3 mg/dL (8.5-10.1); CARBON DIOXIDE 32.4 mmol/L (21.0-32.0); CHLORIDE - SERUM 107 mmol/L (98-107); CREATININE - SERUM 0.9 mg/dL (0.6-1.3); GLUCOSE 109 mg/dL (74-106); INR 1.09 (0.85-1.17); PROTIME 13.6 SECONDS (11.6-15.0); SODIUM 145 mmol/L (136-145); UREA NITROGEN 12 mg/dL (7-18); eGFR NON AFRICAN AMERICAN 85 mL/min (90-120)
[2019-04-27 11:15] LABS: APTT 28.3 SECONDS (22.8-39.4); PLATELET COUNT 173 10x3/uL (130-400)
[~2019-04-28] VITALS: Ht 170.2 cm; Wt 67.6 kg
[~2019-04-28 06:57] MED LIST changes: +ASPIRIN EC81 M1 PO
[2019-04-28] MEDS ORDERED: CO Q-10100 MG PO (07:53)
[2019-04-28] MEDS ORDERED: OMEGA-3100 MG PO (07:54)
[2019-04-28 07:55] VITALS: BP 172/79; Ht 170.2 cm; Wt 67.6 kg
--- NOTE | 2019-04-28 09:34 | OP ---
PATIENT NAME: SHADE PAINTER JR MEDICAL RECORD: [id number] :33 LOCATION:D.OPS ADMISSION DATE: SURGEON: SHREE AGUILAR MD DATE OF OPERATION: 04/28/2019 SURGEON: Shree Aguilar MD ANESTHESIA: TIVA by Julia Marie CRNA. DIAGNOSIS: Urge urinary incontinence. PROCEDURES: Cystoscopy, intravesical Botox injection 100 units. FINDINGS: Nonobstructive prostate. Single ureteral orifices bilaterally without bladder tumors. BLOOD LOSS: None. CLINICAL HISTORY: This is an 83-year-old male, who had prostate cancer treated with brachytherapy by Dr. Perry in 2004. He now has issues with severe urgency and frequency. He was tried on Flomax and Proscar, but it did not help his voiding symptoms. It did affect his short-term memory. Finally, I performed cystoscopy and Botox injection and this did work well for him. The Botox has now worn off and he comes for another repeat dose of Botox. He is not allergic to any medications. He was given Ancef plant operations vice president to the OR. DESCRIPTION OF PROCEDURE: The patient was given IV sedation. He was then placed into lithotomy position and prepped and draped. A 21-Divehi cystoscope with 30-degree lens was used for visualization. Findings are as outlined above. At 10 different locations, we injected 1 mL of Botox solution. Each mL of Botox solution had 10 units of Botox dissolved in it. The ureteral orifice and the trigone were spared. Once all 10 injections were done, the bladder was emptied through the cystoscope sheath and then the scope was removed. I will see the patient in followup in 2 weeks' time. TRANSINT:[id number] Voice Confirmation ID: [id number] DOCUMENT ID: [id number] SHREE AGUILAR MD at 0934 CC: [id number] DICTATION DATE: 04/28/19903 PATIENT SERVICE COORDINATOR: 04/28/19929 [facility] [address] [place] [address]
--- NOTE | 2019-04-28 13:47 | NUR ---
1030 IV DC'ED WITH CATH INTACT. UP TO BATHROOM. VOIDED URINE. DRESSING. @ BEDSIDE. Dorene PHILLIPS R.N. 1115 DRESSED. AWAKE & ALERT. GIVEN DISCHARGE INFORMATION INCLUDING: MED REC, RTC APPT. [facility] D/C INSTRUCTIONS, & POST CYSTOSCOPY & BOTOX INJECTION D/C INSTRUCTIONS . PT & VOICED UNDERSTANDING. TO PRIVATE CAR PER WHEELCHAIR BY VOLUNTEER. HOME WITH MRS. PAINTER. Dorene PHILLIPS R.N.
== END 2019-04-28 11:15 | disposition home or self-care (01) ==
LOC: D.OPS 06:57 → D.PAN 08:00 → D.OPS 08:00 → EDSTATUS 09:35 → D.OPS 09:35 → D.PAN 09:35 → D.OPS 09:45
PROVIDERS: Anesthesiology; ATTEND Urology
DX: N39.41 Urge incontinence (principal); R35.0 Frequency of micturition; Z85.46 Personal history of malignant neoplasm of prostate; Z01.812 Encounter for preprocedural laboratory examination

== ENCOUNTER → 2019-05-15 13:24 | Outpatient (CLI) | payer MEDICARE, OTHER ==
[2019-04-28 07:55] VITALS: BMI 23.5
[~2019-05-15 13:24] MED LIST changes: +CO Q-10100 MG PO; +OMEGA-3100 MG PO
--- NOTE | 2019-05-17 09:56 | EC ---
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 DATE OF SERVICE: 05/15/19 SEX: M MEDICAL RECORD: [id number] DATE OF : [birth year] LOCATION:D.FORMERLY [facility] AGE OF PATIENT: 83 ADMISSION DATE: 05/15/19 REFERRING PHYSICIAN: INTERPRETING PHYSICIAN: SERENA THOMAS MD ECHOCARDIOGRAM REPORT ECHO CHARGES 4 ECHO COMPLETE Date: 05/15/19 CLINICAL DIAGNOSIS: CARDIOMYOPATHY H/O HTN/A-FIB ECHOCARDIOGRAPHIC MEASUREMENTS (adult normal given) AC root (d.<3.7cm) 4.1 cm LV Septum d (<1.2 cm> 1.4 cm Valve Excursion 1.8 cm LV Septum (systole) 2.0 cm Left Atria (s.<4.0cm> 3.8 cm LVPW d(<1.2cm) 1.2 cm RV (d.<2.3cm) 2.6 cm LVPW (sytole) 2.0 cm LV diastole(<5.6CM) 5.5 cm MV E-F(>70mm/sec) cm LV systole 3.6 cm LVOT Diameter 2.2 cm MV exc.(>10mm) cm Est.ejection fraction (50-75%) % DOPPLER: LVIT cm/sec A 116 cm/sec E 57.0 cm/sec LA cm/sec RVSP 33.4 mmHg LVOT 106 cm/sec AOP1/2T m/s Asc. Ao 139 cm/sec RVOT 92.0 cm/sec RA cm/sec PA 86.0 cm/sec AV Gradient Peak 7.7 mmHg AV Mean 3.8 mmHg AV Area 3.1 cm MV Gradient Peak 7.0 mmHg MV Mean 1.9 mmHg MV Area cm COMMENTS: OP - HC Urban Redevelopment Specialist: Marry OCASIO MECHELLE Pluck Trimmer: 3 Dr. Mccoy TAPE# PACS Pericardial Effusion Y DATE OF SERVICE: 05/15/2019 Adequate 2D, color flow imaging, spectral Doppler, and M-Mode Mild LVH. LV internal dimensions are normal. Wall motion is normal. EF is greater than or equal to 55%. Aortic valve is tricuspid. No evidence of stenosis by Doppler interrogation. Left atrium is normal at 3.8 cm. Mitral valve shows no prolapse. Trace MR. Right-sided chambers are grossly normal. Trace TR. ECHOCARDIOGRAM REPORT [id number] SHADE PAINTER Alexy ALANIZ TRANSINT:[id number] Voice Confirmation ID: [id number] DOCUMENT ID: [id number] SERENA THOMAS MD at 0956 CC: [id number] DICTATION DATE: 05/16/19958 METAL LOADER: 05/16/19 1127 DEP CLI 05/15/19 [place] [id number] [place] [id number]
== END | disposition home or self-care (01) ==
LOC: D.HCCECHO 13:24 → D.HCCARDIO 13:30
PROVIDERS: ATTEND Internal Medicine Interventional Cardiology
DX: I42.9 Cardiomyopathy, unspecified (principal)

== ENCOUNTER 2020-01-13 06:20 | Day surgery (SDC) | payer MEDICARE, OTHER ==
[2020-01-11 14:54] LABS: BASOPHILS 0.1 % (0-2); EOSINOPHILS 1.5 % (0-7); HEMATOCRIT 43.7 % (42.0-54.0); HEMOGLOBIN 14.1 g/dL (13.5-17.5); IMMATURE GRANULOCYTES 0.1 % (0-5); LYMPHOCYTES 21.8 % (15-50); MCH 30.7 pg (26.0-34.0); MCHC 32.3 g/dL (31.0-37.0); MEAN PLATELET VOLUME 9.2 fL (7.4-10.4); MONOCYTES 10.5 % (2-11); WBC 6.9 10x3/uL (4.8-10.8)
[2020-01-11 14:55] LABS: PLATELET COUNT 224 10x3/uL (130-400)
[2020-01-11 15:11] LABS: ANION GAP 10.4 mmol/L (8-16); CALCIUM 8.7 mg/dL (8.5-10.1); CARBON DIOXIDE 31.7 mmol/L (21.0-32.0); CREATININE - SERUM 1.1 mg/dL (0.6-1.3); POTASSIUM - SERUM 4.1 mmol/L (3.5-5.1)
[~2020-01-13] VITALS: Ht 170.2 cm; Wt 65.3 kg
[~2020-01-13 06:20] MED LIST changes: +ELIQUIS5 MG PO
[2020-01-13 06:52] VITALS: BP 142/85; Ht 170.2 cm; Wt 65.3 kg
[2020-01-13] MEDS ORDERED: HYDROCODON-ACE1 EAC7 PO (09:14)
[2020-01-13] MEDS ORDERED: FLOMAX0.4 MG PO (09:14)
[2020-01-13] MEDS ORDERED: FUROSEMIDE20 MG PO (09:14)
--- NOTE | 2020-01-13 10:34 | NUR ---
[address] BAKER REGARDING SBP > 30MMMG ABOVE PREOP PRESSURE. OK TO DISCHARGE TO OPD
== END 2020-01-13 11:50 | disposition home or self-care (01) ==
LOC: D.OPS 06:20 → D.PAN 08:00 → D.OPS 11:50
PROVIDERS: Anesthesiology; ATTEND Surgery
DX: K40.90 Unilateral inguinal hernia, without obstruction or gangrene, not specified as recurrent (principal); I48.91 Unspecified atrial fibrillation